=== PATIENT | male | born 1985 | race Caucasian/White ===

== ENCOUNTER → 2024-08-29 | Outpatient (CLI) | payer MEDICARE, OTHER ==
--- NOTE | 2024-08-29 13:55 | P.PAINPG ---
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 Pt states pain level is provoked at 6 /10 in intensity, constant, localized in the lumbar spine, predominantly axial, throbbing in character w occasional shooting pain towards the LEs. Pain is provoked by weight bearing. Pain is alleviated by PT x 6 wks in 2022, physician guided home stretches daily since 2005, medications, use of a wheelchair for ambulatory assistance, repositioning and rest . Oswestry axial pain score at 30. PMH: OA, Spinal Bifida, CVA, GERD, BPH, Vitamin D Deficiency, MDD PSH: Spinal Fusion, Shunt Placement/ Revision x2, Nephrolithiasis, Colostomy, Urostomy, Vascular Grafts SH: Daily tobacco use, No ETOH abuse, No illicit drug use FH: Mo- Lung CA All: See list Meds: See list incl Dilaudid 2mg #90 REVIEW OF ORGAN SYSTEMS: CONSTITUTIONAL: No fevers or chills. No recent weight loss. NEUROLOGICAL: + numbness and tingling along the distal extremities. No seizure disorders or headaches. MUSCULOSKELETAL: + pain PSYCHIATRIC: Denies current depression or suicidal thoughts. Physical Examinations : Constitutional : Cooperative , not in acute distress . Neurologic : Cranial nerve II to XII intact. No focal neurological deficits. Psychiatric : alert & oriented x 3. Matching mood & appropriate affect. Judgment & insight intact. Musculoskeletal : Cervical Spine Motor strength in the deltoid and biceps: Normal right side. Normal Left side Motor strength biceps and the wrist extensors: Normal right side . Normal left side Motor strength in the triceps muscle: Normal right side. Normal left side Deep tendon reflexes: Normal at the biceps. Normal at Brachioradialis. Normal at triceps Vertebral body tenderness to deep palpation over Cervical facet loading test: positive bilaterally Spurling test: positive bilaterally Neck distraction test: positive bilaterally Genet sign: positive bilaterally Lumbar spine +Incisional scars Motor strength lower extremities ,thigh and legs 5/5 Right side , 5/5 Left side Deep tendon reflexes : Normal Knee Jerk. Normal Ankle Jerk Vertebral body tenderness over Velasquez Test positive Lumbar facet Loading Test: positive Right / positive Left Range of motion of the lumbar spine Flexion 30 degrees, extension 10 degrees Straight Leg Raise test: Left/ Right positive at degrees Fernando test: positive right / positive left. Severe tenderness over the Sacroiliac joint on the Right / Left sides Gaenslen test: positive bilaterally Seated flexion test: positive bilaterally. Sacral spine : Severe tenderness over the Sacroiliac joint: right side / left side Range of motion: Flexion of the lumbar spine <60 degrees Range of motion: Extension of the lumbar spine <20 degrees Gaenslen's Test positive Fernando test: positive right side / left side Thigh Thrust Test Sacral Thrust Test Assessment/ Plan : Spinal Fusion secondary to Spinal Bifida Recommendation of medication management. Opiate/ narcotic agreement signed 08/29/24. Dilaudid 2mg #90 w 1 RF. Use, side effects, adverse reactions, safe storage discussed. All questions answered. I have spent greater than 30 minutes on patient care today. Dr Smith was available by phone for the evaluation of this patient. The time was used to review the medical records including relevant urine studies and Prescription history (MAPs), review of the available imaging, evaluation and examination of the patient, coordination of care with the medical staff and if applicable referring physicians, as well as creation of the medical record Home Medications: Ambulatory Orders Apixaban [Eliquis] 5 mg PO BID 07/17/24 Cholecalciferol [Vitamin D3 (10 Mcg = 400 Iu)] 2 tab PO DAILY 07/17/24 DULoxetine HCL [Cymbalta] 1 tab PO DAILY 07/17/24 Folic Acid 800 mcg PO DAILY 07/17/24 HYDROmorphone [Dilaudid] 1 tab PO TID PRN 07/17/24 Loratadine 10 mg PO DAILY 07/17/24 Metoclopramide HCl [Reglan] 1 tab PO BID 07/17/24 Pantoprazole Sodium 1 tab PO DAILY 07/17/24 Tamsulosin [Flomax] 1 tab PO DAILY 07/17/24 Triamcinolone 0.025% Cream [Kenalog 0.025% Cream] 1 dispenser TOPICAL BID 07/17/24 buPROPion XL [Wellbutrin XL] 1 tab PO DAILY 07/17/24 traZODone HCL [Desyrel] 1 tab PO DAILY 07/17/24 Controlled Substance Measures - Controlled Substance Measures Is patient prescribed a controlled substance at discharge?: Yes When asked, does pt state using other controlled substances?: No If prescribed controlled substance>3 days was MAPS reviewed?: Yes If Rx opioid, was Start Talking consent form obtained?: Yes Was information provided regarding opioid addiction?: Yes
[2024-08-29 14:03] VITALS: BP 117/75; PULSE 88; RESP 16; TEMP 98.5
== END ==
LOC: PNWHC3 12:53
PROVIDERS: ATTEND Specialist
DX: M43.26 Fusion of spine, lumbar region (principal); Q05.9 Spina bifida, unspecified; Z88.0 Allergy status to penicillin; Z88.2 Allergy status to sulfonamides; Z88.1 Allergy status to other antibiotic agents; Z88.5 Allergy status to narcotic agent; Z91.040 Latex allergy status; Z91.041 Radiographic dye allergy status
CPT/HCPCS: 99211

== ENCOUNTER 2024-09-02 23:59 | Observation (INO) | payer MEDICARE, OTHER ==
--- NOTE | 2024-09-03 01:32 | ED ---
General Adult HPI - General Chief complaint: Urogenital Stated complaint: abd pain Time Seen by Provider: 09/03/24 00:07 Source: patient, EMS Mode of arrival: EMS - History of Present Illness Initial comments: This patient is a 39-year-old man with history of spina bifida, urostomy placement, and kidney stones. The patient states that going back for a number of weeks to months he has been having intermittent right flank pain and he does have a known kidney stone. Patient states that a couple of hours ago the pain came on and has been increasing, now severe. He states it is identical to previous stone pain. The patient may have noted low grade temp, no chills. No change in the urostomy output. The patient does have some associated nausea. Patient does report having chronic ulcers, 1 over each buttock and sacral ulcer as well. States that he is currently using wound honey on these, history of chronic osteomyelitis Onset/Timin -: hour(s) Location: back, abdomen, right Radiation: non-radiation Quality: aching, sharp Consistency: colicky Improves with: none Worsens with: none Associated Symptoms: nausea/vomiting Treatments Prior to Arrival: none - Related Data Home Medications Medication Instructions Recorded Confirmed Apixaban [Eliquis] 5 mg PO BID 07/17/24 08/29/24 Cholecalciferol [Vitamin D3 (10 2 tab PO DAILY 07/17/24 08/29/24 Mcg = 400 Iu)] DULoxetine HCL [Cymbalta] 1 tab PO DAILY 07/17/24 08/29/24 Folic Acid 800 mcg PO DAILY 07/17/24 08/29/24 Loratadine 10 mg PO DAILY 07/17/24 08/29/24 Metoclopramide HCl [Reglan] 1 tab PO BID 07/17/24 08/29/24 Pantoprazole Sodium 1 tab PO DAILY 07/17/24 08/29/24 Tamsulosin [Flomax] 1 tab PO DAILY 07/17/24 08/29/24 Triamcinolone 0.025% Cream 1 dispenser TOPICAL BID 07/17/24 08/29/24 [Kenalog 0.025% Cream] buPROPion XL [Wellbutrin XL] 1 tab PO DAILY 07/17/24 08/29/24 traZODone HCL [Desyrel] 1 tab PO DAILY 07/17/24 08/29/24 Previous Rx's Medication Instructions Recorded HYDROmorphone [Dilaudid] 1 tab PO TID PRN 30 Days #90 tab 08/29/24 Allergies Allergy/AdvReac Type Severity Reaction Status Date / Time amoxicillin Allergy Rash/Hives Verified 08/29/24 13:41 barium sulfate Allergy Dyspnea Verified 08/29/24 13:41 cefepime Allergy Rash/Hives Verified 08/29/24 13:41 ceftriaxone Allergy Rash/Hives Verified 08/29/24 13:41 fentanyl Allergy Rash/Hives Verified 08/29/24 13:41 Iodinated Contrast Media Allergy Dyspnea Verified 08/29/24 13:41 latex Allergy Rash/Hives Verified 08/29/24 13:41 morphine Allergy Anaphylaxis Verified 08/29/24 13:41 ondansetron [From Zofran] Allergy Rash/Hives Verified 08/29/24 13:41 prochlorperazine Allergy Rash/Hives Verified 08/29/24 13:41 [From Compazine] Review of Systems ROS Statement: Those systems with pertinent positive or pertinent negative responses have been documented in the HPI. ROS Other: All systems not noted in ROS Statement are negative. Constitutional: Denies: fever, chills, weakness Respiratory: Denies: cough, dyspnea Cardiovascular: Denies: chest pain, palpitations Gastrointestinal: Reports: as per HPI, abdominal pain. Denies: nausea, vomiting, diarrhea Genitourinary: Denies: hematuria, testicular pain, testicular mass Musculoskeletal: Reports: as per HPI, back pain Skin: Denies: rash Neurological: Denies: headache, weakness Past Medical History Past Medical History: Heart Failure, Deep Vein Thrombosis (DVT), GERD/Reflux, Hypertension, Musculoskeletal Disorder, Neurologic Disorder, Renal Disease, Skin Disorder Additional Past Medical History / Comment(s): WOUND STAGE 4 CAITLYN AND MID BUT TOCKS-[facility] wound clinic Q other week, kidney stone, scoliosis/kyphosis, spina bifida-T6 level, cervical stenosis History of Any Multi-Drug Resistant Organisms: C-DIFF, ESBL, MRSA Date of last positivie culture/infection: 2020 MDRO Source:: WOUND Past Surgical History: Appendectomy, Back Surgery, Bladder Surgery, Bowel Resection, Cholecystectomy, Orthopedic Surgery, Plyoromyotomy, Ventriculoperitoneal Shunt Additional Past Surgical History / Comment(s): Urostomy,Colostomy, [facility] shunt placed 2019, Lt rotator cuff repair, Infusaport LT chest, Spinal fusion at 7 years old Past Anesthesia/Blood Transfusion Reactions: No Reported Reaction Past Psychological History: Depression Smoking Status: Never smoker - Past Family History Mother Additional Family Medical History / Comment(s): spine issues General Exam General appearance: alert, in no apparent distress Head exam: Present: atraumatic, normocephalic Eye exam: Present: normal appearance. Absent: scleral icterus, conjunctival injection ENT exam: Present: normal oropharynx Neck exam: Present: normal inspection Respiratory exam: Present: normal lung sounds bilaterally. Absent: respiratory distress, wheezes, rales, rhonchi, stridor, accessory muscle use Cardiovascular Exam: Present: regular rate, normal rhythm, normal heart sounds. Absent: systolic murmur, diastolic murmur, rubs, gallop GI/Abdominal exam: Present: soft. Absent: distended, tenderness, guarding, isabel ound, mass Neurological exam: Present: alert Skin exam: Present: warm, dry, intact, normal color. Absent: rash Course Vital Signs 09/03/24 09/03/24 09/03/24 00:03 02:09 06:17 Temperature 99.9 F H 98.7 F Pulse Rate 100 95 94 Respiratory 20 18 17 Rate Blood Pressure 107/70 121/73 110/77 O2 Sat by Pulse 97 97 97 Oximetry Medical Decision Making - Medical Decision Making Patient is 39-year-old man with right-sided flank and abdominal pain, also some low-grade fevers. The workup does find mild leukocytosis and CT scan reveals osteomyelitis of the left ischium. Patient states that this is probably all chronic, but given the low-grade fever and leukocytosis will admit patient pending set of cultures and to have ID consult. - Lab Data Result diagrams: 09/03/24 01:22 09/03/24 01:22 Lab Results 09/03/24 09/03/24 09/03/24 Range/Units 01:22 01:22 01:22 WBC 11.9 H (3.8-10.6) k/uL RBC 4.69 (4.30-5.90) m/uL Hgb 11.7 L (13.0-17.5) gm/dL Hct 38.0 L (39.0-53.0) % MCV 80.9 (80.0-100.0) fL MCH 24.9 L (25.0-35.0) pg MCHC 30.8 L (31.0-37.0) g/dL RDW 15.8 H (11.5-15.5) % Plt Count 402 (150-450) k/uL MPV 7.1 Neutrophils % 81 % Lymphocytes % 12 % Monocytes % 5 % Eosinophils % 1 % Basophils % 0 % Neutrophils # 9.7 H (1.3-7.7) k/uL Lymphocytes # 1.4 (1.0-4.8) k/uL Monocytes # 0.6 (0-1.0) k/uL Eosinophils # 0.2 (0-0.7) k/uL Basophils # 0.0 (0-0.2) k/uL Hypochromasia Moderate Sodium 136 L (137-145) mmol/L Potassium 3.5 (3.5-5.1) mmol/L Chloride 103 (98-107) mmol/L Carbon Dioxide 22 (22-30) mmol/L Anion Gap 11 mmol/L BUN 14 (9-20) mg/dL Creatinine 0.63 L (0.66-1.25) mg/dL Est GFR (CKD-EPI)AfAm >90 (>60 ml/min/1.73 sqM) Est GFR (CKD-EPI)NonAf >90 (>60 ml/min/1.73 sqM) Glucose 114 H (74-99) mg/dL Plasma Lactic Acid Reuben 1.9 (0.7-2.0) mmol/L Calcium 7.5 L (8.4-10.2) mg/dL Total Bilirubin 0.3 (0.2-1.3) mg/dL AST 17 (17-59) U/L ALT 13 (4-49) U/L Alkaline Phosphatase 134 H (38-126) U/L Total Protein 6.6 (6.3-8.2) g/dL Albumin 3.1 L (3.5-5.0) g/dL Urine Color Urine Appearance (Clear) Urine pH (5.0-8.0) Ur Specific Goltry (1.001-1.035) Urine Protein (Negative) Urine Glucose (UA) (Negative) Urine Ketones (Negative) Urine Blood (Negative) Urine Nitrite (Negative) Urine Bilirubin (Negative) Urine Urobilinogen (<2.0) mg/dL Ur Leukocyte Esterase (Negative) Urine RBC (0-5) /hpf Urine WBC (0-5) /hpf Urine WBC Clumps (None) /hpf Urine Bacteria (None) /hpf Hyaline Casts (0-2) /lpf Urine Mucus (None) /hpf 09/03/ Range/Units 01:24 WBC (3.8-10.6) k/uL RBC (4.30-5.90) m/uL Hgb (13.0-17.5) gm/dL Hct (39.0-53.0) % MCV (80.0-100.0) fL MCH (25.0-35.0) pg MCHC (31.0-37.0) g/dL RDW (11.5-15.5) % Plt Count (150-450) k/uL MPV Neutrophils % % Lymphocytes % % Monocytes % % Eosinophils % % Basophils % % Neutrophils # (1.3-7.7) k/uL Lymphocytes # (1.0-4.8) k/uL Monocytes # (0-1.0) k/uL Eosinophils # (0-0.7) k/uL Basophils # (0-0.2) k/uL Hypochromasia Sodium (137-145) mmol/L Potassium (3.5-5.1) mmol/L Chloride (98-107) mmol/L Carbon Dioxide (22-30) mmol/L Anion Gap mmol/L BUN (9-20) mg/dL Creatinine (0.66-1.25) mg/dL Est GFR (CKD-EPI)AfAm (>60 ml/min/1.73 sqM) Est GFR (CKD-EPI)NonAf (>60 ml/min/1.73 sqM) Glucose (74-99) mg/dL Plasma Lactic Acid Reuben (0.7-2.0) mmol/L Calcium (8.4-10.2) mg/dL Total Bilirubin (0.2-1.3) mg/dL AST (17-59) U/L ALT (4-49) U/L Alkaline Phosphatase (38-126) U/L Total Protein (6.3-8.2) g/dL Albumin (3.5-5.0) g/dL Urine Color Light Yellow Urine Appearance Cloudy (Clear) Urine pH 7.0 (5.0-8.0) Ur Specific Goltry 1.014 (1.001-1.035) Urine Protein 1+ H (Negative) Urine Glucose (UA) Negative (Negative) Urine Ketones Negative (Negative) Urine Blood Small H (Negative) Urine Nitrite Positive (Negative) Urine Bilirubin Negative (Negative) Urine Urobilinogen <2.0 (<2.0) mg/dL Ur Leukocyte Esterase Large H (Negative) Urine RBC 29 H (0-5) /hpf Urine WBC >182 H (0-5) /hpf Urine WBC Clumps Many H (None) /hpf Urine Bacteria Many H (None) /hpf Hyaline Casts 27 H (0-2) /lpf Urine Mucus Many H (None) /hpf Disposition Clinical Impression: Decubitus ulcers, Leukocytosis, Flank pain Disposition: ADMITTED IP TO THIS [facility] Condition: Fair Is patient prescribed a controlled substance at d/c from ED?: No Referrals: Akash Hodges MD [Primary Care Provider] - 1-2 days
[2024-09-03] MEDS: HYDROmorphone 1 MG/ML 1 ML SYRINGE IVP STA ×2 (01:37→05:46)
[2024-09-03] MEDS: ONDANSETRON 4 MG/2 ML VIAL IVP STA (01:40)
[2024-09-03] MEDS: diphenhydrAMINE 50 MG/ML 1 ML VIAL IVP STA ×4 (01:41→12:24)
[2024-09-03 02:06] LABS: Basophils % (A) 0 %; Eosinophils # (A) 0.2 k/uL (0-0.7); Eosinophils % (A) 1 %; HGB 11.7 gm/dL (13.0-17.5); Hypochromasia Moderate; Lymphocytes # (A) 1.4 k/uL (1.0-4.8); Lymphocytes % (A) 12 %; MCH 24.9 pg (25.0-35.0); MCHC 30.8 g/dL (31.0-37.0); MCV 80.9 fL (80.0-100.0); Mean Platelet Volume 7.1; Monocytes # (A) 0.6 k/uL (0-1.0); Monocytes % (A) 5 %; Neutrophils # (A) 9.7 k/uL (1.3-7.7); Neutrophils % (A) 81 %; Platelet Count 402 k/uL (150-450); RBC 4.69 m/uL (4.30-5.90); RDW 15.8 % (11.5-15.5); WBC 11.9 k/uL (3.8-10.6)
[2024-09-03 02:24] LABS: ALT 13 U/L (4-49); AST 17 U/L (17-59); African American GFR (CKD) >90 (>60 ml/min/1.73 sqM); Albumin 3.1 g/dL (3.5-5.0); Alkaline Phosphatase 134 U/L (38-126); Anion Gap 11 mmol/L; Blood Urea Nitrogen 14 mg/dL (9-20); Calcium 7.5 mg/dL (8.4-10.2); Carbon Dioxide 22 mmol/L (22-30); Chloride 103 mmol/L (98-107); Glucose 114 mg/dL (74-99); Non-African American GFR(CKD) >90 (>60 ml/min/1.73 sqM); Potassium 3.5 mmol/L (3.5-5.1); Sodium 136 mmol/L (137-145); Total Bilirubin 0.3 mg/dL (0.2-1.3); Total Protein 6.6 g/dL (6.3-8.2)
[2024-09-03 02:27] LABS: Appearance,Urine Cloudy (Clear); Bacteria,Urine Many /hpf; Bilirubin,Urine Negative (Negative); Blood,Urine Small (Negative); Color,Urine Light Yellow; Glucose,Urine (UA) Negative (Negative); Hyaline Casts,Urine 27 /lpf (0-2); Ketones,Urine Negative (Negative); Leukocyte Esterase,Urine Large (Negative); Mucus,Urine Many /hpf; Nitrite,Urine Positive (Negative); Protein,Urine 1+ (Negative); RBC,Urine 29 /hpf (0-5); Specific Gravity,Urine 1.014 (1.001-1.035); Urobilinogen,Urine <2.0 mg/dL (<2.0); WBC,Urine >182 /hpf (0-5)
--- NOTE | 2024-09-03 05:49 | CT ---
EXAM: CT Abdomen and Pelvis Without Intravenous Contrast CLINICAL HISTORY: ITS.REASON CT Reason: stone protocol. R flank pain TECHNIQUE: Axial computed tomography images of the abdomen and pelvis without intravenous contrast. CTDI is 23.2 mGy and DLP is 1135.2 mGy-cm. This CT exam was performed using one or more of the following dose reduction techniques: automated exposure control, adjustment of the mA and/or kV according to patient size, and/or use of iterative reconstruction technique. COMPARISON: No relevant prior studies available. FINDINGS: Limitations: Limited evaluation in the absence of contrast. Lung bases: Unremarkable. No mass. No consolidation. ABDOMEN: Liver: Unremarkable. Gallbladder and bile ducts: Unremarkable. No calcified stones. No ductal dilation. Pancreas: Unremarkable. No ductal dilation. Spleen: Unremarkable. No splenomegaly. Adrenals: Unremarkable. No mass. Kidneys and ureters: No evidence of radiopaque renal calculi or signs of collecting system dilatation. Irregular fat-containing mass which appears to arise from the left kidney measuring up to 7.3 cm. Findings may relate to posttreatment changes. Angiomyolipoma is also possible. Consider correlation with prior imaging. ACR White Paper guidelines (Herts, et al. JACR 2018; 15(2):264-273) [address] abdominal CT or MRI without and with intravenous contrast if not recently performed. Stomach and bowel: Unremarkable. No obstruction. No mucosal thickening. PELVIS: Appendix: No findings to suggest acute appendicitis. Bladder: Unremarkable. No stones. Reproductive: Unremarkable as visualized. ABDOMEN and PELVIS: Intraperitoneal space: Unremarkable. No free air. No significant fluid collection. Bones/joints: Partially visualized thoracic-iliac spinal fusion hardware. Bilateral destruction of the femoral acetabular joints, left greater than right. Findings concerning for advanced osteomyelitis of the left if she with overlying ulcer. Consider direct inspection. Destruction of the posterior sacrum and coccyx. No acute fracture. No dislocation. Soft tissues: Unremarkable. Vasculature: Unremarkable. No abdominal aortic aneurysm. Lymph nodes: Unremarkable. No enlarged lymph nodes. IMPRESSION: 1. No evidence of radiopaque renal calculi or signs of collecting system dilatation. 2. Irregular fat-containing mass which appears to arise from the left kidney measuring up to 7.3 cm. Findings may relate to posttreatment changes. Angiomyolipoma is also possible. Consider correlation with prior imaging. ACR White Paper guidelines (Herts, et al. JACR 2018; 15(2):264-273) recommend abdominal CT or MRI without and with intravenous contrast if not recently performed. 3. Findings concerning for advanced osteomyelitis of the left if she with overlying ulcer. Consider direct inspection. 4. Destruction of the posterior sacrum and coccyx. 5. No other acute findings. 6. Incidental findings as described.
[2024-09-03] MEDS ORDERED: NALOXONE 0.4 MG/ML 1 ML VIAL IV PRN (06:45)
[2024-09-03] MEDS ORDERED: ACETAMINOPHEN TAB 325 MG TAB PO PRN (06:45)
--- NOTE | 2024-09-03 08:53 | P.HPIM ---
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 Denies fevers or chills. Denies chest pain, palpitations or shortness of breath. Denies lightheadedness dizziness or focal deficits. Tmax 99.9, WBC 11.9, hemoglobin 11.7, platelets 402 and sodium 136, potassium 3.5, bicarb 22, BUN 14, creatinine 0.63 glucose 114 lactic acid 1.9, Alk phos 134, albumin 3.1. UA positive for nitrates, 1+ protein, large leukocytes, greater than 182 WBCs with many bacteria, 27 hyaline cast, small blood with 29 RBCs. Urine and blood cultures pending. CT of abdomen and pelvis reported no evidence of radiopaque renal calculi or signs of collecting system dilation. Irregular fat-containing mass appears to arise from the left kidney measuring up to 7.3 cm. May relate to posttreatment changes. Angio mild lipoma is also possible. Consider correlation with prior imaging. findings concerning for advanced osteomyelitis of the left foot with overlying ulcer. Destruction of posterior sacrum and coccyx no other acute findings Review of Systems ROS Statement: Those systems with pertinent positive or pertinent negative responses have been documented in the HPI. ROS Other: All systems not noted in ROS Statement are negative. Past Medical History Past Medical History: Heart Failure, Deep Vein Thrombosis (DVT), GERD/Reflux, Hy pertension, Musculoskeletal Disorder, Neurologic Disorder, Renal Disease, Skin Disorder Additional Past Medical History / Comment(s): WOUND STAGE 4 [place] [facility] wound clinic Q other week, kidney stone, scoliosis/kyphosis, spina bifida-T6 level, cervical stenosis History of Any Multi-Drug Resistant Organisms: C-DIFF, ESBL, MRSA Date of last positivie culture/infection: 2020 MDRO Source:: WOUND Past Surgical History: Appendectomy, Back Surgery, Bladder Surgery, Bowel Resection, Cholecystectomy, Orthopedic Surgery, Plyoromyotomy, Ventriculoperitoneal Shunt Additional Past Surgical History / Comment(s): Urostomy,Colostomy, [facility] shunt pl aced 2018, Lt rotator cuff repair, Infusaport LT chest, Spinal fusion at 7 years old Past Anesthesia/Blood Transfusion Reactions: No Reported Reaction Past Psychological History: Depression Smoking Status: Never smoker - Past Family History Mother Additional Family Medical History / Comment(s): spine issues Medications and Allergies Home Medications Medication Instructions Recorded Confirmed Type Apixaban [Eliquis] 5 mg PO BID 07/17/24 09/03/24 History Metoclopramide HCl [Reglan] 10 mg PO AC-BID 07/17/24 09/03/24 History Pantoprazole Sodium 40 mg PO AC-BRKFST 07/17/24 09/03/24 History Tamsulosin [Flomax] 0.4 mg PO DAILY 07/17/24 09/03/24 History buPROPion XL [Wellbutrin XL] 150 mg PO DAILY 07/17/24 09/03/24 History traZODone HCL [Desyrel] 50 mg PO HS PRN 07/17/24 09/03/24 History HYDROmorphone HCL 2 mg PO TID PRN 09/03/24 09/03/24 History Levofloxacin [Levaquin] 500 mg PO DAILY 7 Days #7 tab 09/03/24 Rx Metoprolol Succinate (ER) [Toprol 25 mg PO HS 09/03/24 09/03/24 History XL] Allergies Allergy/AdvReac Type Severity Reaction Status Date / Time amoxicillin Allergy Rash/Hives Verified 09/03/24 07:27 barium sulfate Allergy Dyspnea Verified 09/03/24 07:27 cefepime Allergy Rash/Hives Verified 09/03/24 07:27 ceftriaxone Allergy Rash/Hives Verified 09/03/24 07:27 fentanyl Allergy Rash/Hives Verified 09/03/24 07:27 Iodinated Contrast Media Allergy Dyspnea Verified 09/03/24 07:27 latex Allergy Rash/Hives Verified 09/03/24 07:27 morphine Allergy Anaphylaxis Verified 09/03/24 07:27 ondansetron [From Zofran] Allergy Rash/Hives Verified 09/03/24 07:27 prochlorperazine Allergy Rash/Hives Verified 09/03/24 07:27 [From Compazine] Physical Exam Vitals: Vital Signs Temp Pulse Resp BP Pulse Ox 09/03/24 06:17 94 17 110/77 97 09/03/24 02:09 98.7 F 95 18 121/73 97 09/03/24 00:03 99.9 F H 100 20 107/70 97 Intake and Output 09/02/24 09/03/24 09/03/24 22:59 06:59 14:59 Other: Weight 81.647 kg PHYSICAL EXAM: VITAL SIGNS: [Reviewed] GENERAL:-year-old gentleman with spina bifida ,alert and oriented x 3, sitting up in bed, no acute distress. HEENT: Conjunctivae normal. eyes normal. MMM. NECK: Supple, no JVD. No thyroid enlargement. No LNs CARDIOVASCULAR: S1, S2 regular.. No murmur RESPIRATION: Kyphosis .unlabored, equal air entry .breath sounds diminished in the bases. No rhonchi or crackles. No bronchial breathing. ABDOMEN: Soft, nontender . No guarding. no masses palpable. No ascites, No hepatosplenomegaly.Bowel sounds heard. LEGS: No edema. no swelling PSYCHIATRY: Alert and oriented X3, mood and affect normal. NERVOUS SYSTEM: Cranial N 2-12 grossly normal.No focal deficits. Skin: Chronic stage IV left ischium , stage IV sacrum, pressure ulcer right ischium, left and right lower extremities' chronic nonpressure ulcers, refer to nursing documentation for specific sizing. Results CBC & Chem 7: 09/03/24 01:22 09/03/24 01:22 Labs: Abnormal Lab Results - Last 24 Hours (Table) 09/03/24 09/03/24 09/03/24 Range/Units 01:22 01:22 01:24 WBC 11.9 H (3.8-10.6) k/uL Hgb 11.7 L (13.0-17.5) gm/dL Hct 38.0 L (39.0-53.0) % MCH 24.9 L (25.0-35.0) pg MCHC 30.8 L (31.0-37.0) g/dL RDW 15.8 H (11.5-15.5) % Neutrophils # 9.7 H (1.3-7.7) k/uL Sodium 136 L (137-145) mmol/L Creatinine 0.63 L (0.66-1.25) mg/dL Glucose 114 H (74-99) mg/dL Calcium 7.5 L (8.4-10.2) mg/dL Alkaline Phosphatase 134 H (38-126) U/L Albumin 3.1 L (3.5-5.0) g/dL Urine Protein 1+ H (Negative) Urine Blood Small H (Negative) Ur Leukocyte Esterase Large H (Negative) Urine RBC 29 H (0-5) /hpf Urine WBC >182 H (0-5) /hpf Urine WBC Clumps Many H (None) /hpf Urine Bacteria Many H (None) /hpf Hyaline Casts 27 H (0-2) /lpf Urine Mucus Many H (None) /hpf Assessment and Plan Assessment: Acute UTI, UA reporting positive nitrates, large leukocytes, rare than 182 WBCs, many bacteria, accompanied by right flank pain, urine culture pending Chronic osteomyelitis with chronic pressure ulcers;Stage IV left ischium , stage IV sacrum, pressure ulcer right ischium, left and right lower extremities' chronic nonpressure ulcers, follows with [facility] wound care clinic every other week. Leukocytosis, mild Irregular fat-containing mass arising from the left kidney measuring up to 7.3 cm, possibly related to posttreatment, possible angiomyolipoma, patient has already been scheduled for outpatient follow-up with urology per wound care team. 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 difficile, ESBL, MRSA Hypertension chronic renal failure stage 1 history of DVT Morbid obesity, BMI 33 Urostomy Colostomy Depression Hypoalbuminemia Pain contract Plan: Continue on current medication regimen ,monitoring and symptomatic treatment. Urine culture pending. Multiple drug allergies, history of multiple drug-resistant organism infections ; notified ID with antibiotics pending as per ID. Prealbumin, hemoglobin A1c ordered. Anticoagulated on Eliquis. Continue on PPI for GI prophylax. Wound care as per [facility] wound care team.Wound care center reports patient has already been set up to follow-up with urology outpatient. Pain management-patient reports he follows up with the pain management team at [facility], uses oral Dilaudid. Evaluated by infectious disease. Patient to receive a dose of Levaquin IV then cleared for discharg home on Levaquin 500 milligrams daily x 7 days. Pain controlled on Dilaudid-has oral Dilaudid at home per pain management team. patient will be discharged home today in a stable condition with guarded prognosis. Discharge Medication List Apixaban [Eliquis] 5 mg PO BID 07/17/24 [History] Metoclopramide HCl [Reglan] 10 mg PO AC-BID 07/17/24 [History] Pantoprazole Sodium 40 mg PO AC-BRKFST 07/17/24 [History] Tamsulosin [Flomax] 0.4 mg PO DAILY 07/17/24 [History] buPROPion XL [Wellbutrin XL] 150 mg PO DAILY 07/17/24 [History] traZODone HCL [Desyrel] 50 mg PO HS PRN 07/17/24 [History] HYDROmorphone HCL 2 mg PO TID PRN 09/03/24 [History] Levofloxacin [Levaquin] 500 mg PO DAILY 7 Days #7 tab 09/03/24 [Rx] Metoprolol Succinate (ER) [Toprol XL] 25 mg PO HS 09/03/24 [History] The impression and plan of care has been dictated as directed. : I performed a history and examination of this patient, discussed the same with the dictator. I agree with the dictator's note ,documented as a scribe. Any ad ditional findings or plans will be noted.
[2024-09-03] MEDS ORDERED: LORATADINE 10 MG TAB PO SCH (09:00)
[2024-09-03] MEDS ORDERED: CHOLECALCIFEROL 10 MCG (400 IU) TABLET PO SCH (09:00)
[2024-09-03] MEDS ORDERED: FOLIC ACID 1 MG TAB PO SCH (09:00)
[2024-09-03] MEDS ORDERED: DULoxetine HCL 60 MG CAPSULE.DR PO SCH (09:00)
[2024-09-03] MEDS: METOCLOPRAMIDE 10 MG TAB PO SCH (09:01)
[2024-09-03] MEDS: PANTOPRAZOLE 40 MG TABLET PO SCH (09:02)
[2024-09-03] MEDS: APIXABAN 5 MG TAB PO SCH (09:02)
[2024-09-03] MEDS: buPROPion XL 150 MG TAB.ER.24H PO SCH (09:02)
[2024-09-03] MEDS: traZODone HCL 50 MG TAB PO SCH (09:02)
[2024-09-03] MEDS: TAMSULOSIN 0.4 MG CAP.ER.24H PO SCH (09:02)
[2024-09-03] MEDS: SODIUM CHLORIDE 0.9% 1,000 ML IV SCH (09:07)
[2024-09-03] MEDS: HYDROmorphone 0.5 MG/0.5 ML SYRINGE IVP STA (10:24)
[2024-09-03] MEDS ORDERED: HYDROmorphone 0.5 MG/0.5 ML SYRINGE IVP PRN (10:25)
[2024-09-03 10:39] LABS: Cocaine Screen,Urine Not Detected (NotDetected); Opiate Screen,Urine Detected (NotDetected); Phencyclidine Screen,Urine Not Detected (NotDetected); Urn Cannabinoid Scrn Not Detected (NotDetected)
[2024-09-03 10:40] LABS: Amphetamine Screen,Urine Not Detected (NotDetected); Barbiturate Screen,Urine Not Detected (NotDetected); Benzodiazepines Screen,Urine Not Detected (NotDetected); Methadone Screen, Urine Not Detected (NotDetected); Oxycodone Screen, Urine Not Detected (NotDetected); Tricyclic Antidepressant,Urine Not Detected (NotDetected)
--- NOTE | 2024-09-03 11:00 | P.CONS ---
History of Present Illness - Reason for Consult Consult date: 09/03/24 wound care - History of Present Illness This is a 39-year-old gentleman known to the wound care center with history of chronic osteomyelitis chronic stage IV pressure ulcer and spina bifida. [place] We have been utilizing honey gel to the ulcerations. Last week at his wound care visit it was found that his penis is visible through his midline sacral ulceration. Patient was set up to see urology. Original cause of wound was Gradually Appeared. The date acquired was: 06/12/2023. The wound has been in treatment 4 weeks. The wound is currently classified as a Partial Thickness wound with etiology of Venous Leg Ulcer and is located on the Left,Circumferential Lower Leg. The wound measures 0cm length x 0cm width x 0cm depth; 0cm^2 area and 0cm^3 volume. There is no tunneling or undermining noted. There is a none present amount of drainage noted. The wound margin is indistinct and nonvisible. There is no granulation within the wound bed. There is no necrotic tissue within the wound bed. The periwound skin appearance exhibited: Dry/Scaly, Maceration, Hemosiderin Staining. The periwound skin appearance did not exhibit: Callus, Crepitus, Excoriation, Induration, Rash, Scarring, Atrophie Jordan, Cyanosis, Ecchymosis, Mottled, Pallor, Rubor, Erythema. Periwound temperature was noted as No Abnormality. Original cause of wound was Gradually Appeared. The date acquired was: 06/12/2023. The wound has been in treatment 4 weeks. The wound is currently classified as a Partial Thickness wound with etiology of Venous Leg Ulcer and is located on the Right,Circumferential Lower Leg. The wound measures 13.7cm length x 6.5cm width x 0.1cm depth; 69.94cm^2 area and 6.994cm^3 volume. There is no tunneling or undermining noted. There is a medium amount of serous drainage noted. The wound margin is indistinct and nonvisible. There is medium (34-66%) pink granulation within the wound bed. There is a medium (34-66%) amount of necrotic tissue within the wound bed including Adherent Slough. The periwound skin appearance exhibited: Dry/Scaly, Maceration, Hemosiderin Staining. The periwound skin appearance did not exhibit: Callus, Crepitus, Excoriation, Induration, Rash, Scarring, Atrophie Geovanna, Cyanosis, Ecchymosis, Mottled, Pallor, Rubor, Erythema. Original cause of wound was Pressure Injury. The date acquired was: 06/12/2023. The wound has been in treatment 4 weeks. The wound is currently classified as a Category/Stage IV wound with etiology of Pressure Ulcer and is located on the Left Ischium. The wound measures 3cm length x 1.7cm width x 3cm depth; 4.006cm^2 area and 12.017cm^3 volume. There is muscle, Fat Layer (Subcutaneous Tissue), and fascia exposed. There is no tunneling or undermining noted. There is a large amount of serosanguineous drainage noted. The wound cliff in is fibrotic, thickened scar. There is medium (34-66%) red granulation within the wound bed. There is a medium (34-66%) amount of necrotic tissue within the wound bed including Adherent Slough. The periwound skin appearance exhibited: Excoriation, Maceration, Erythema. The periwound skin appearance did not exhibit: Callus, Crepitus, Induration, Rash, Scarring, Dry/Scaly, Atrophie Jordan, Cyanosis, Ecchymosis, Hemosiderin Staining, Mottled, Pallor, Rubor. The surrounding wound skin color is noted with erythema which is circumferential. Periwound temperature was noted as No Abnormality. Original cause of wound was Pressure Injury. The date acquired was: 06/12/2023. The wound has been in treat ment 4 weeks. The wound is currently classified as a Category/Stage IV wound with etiology of Pressure Ulcer and is located on the Right Ischium. The wound measures 1.4cm length x 3.5cm width x 2cm depth; 3.848cm^2 area and 7.697cm^3 volume. There is muscle, Fat Layer (Subcutaneous Tissue), and fascia exposed. There is no tunneling or undermining noted. There is a large amount of serosanguineous drainage noted. The wound margin is fibrotic, thickened scar. There is large (67-100%) red granulation within the wound bed. There is a small (1-33%) amount of necrotic tissue within the wound bed including Adherent Slough. The periwound skin appearance exhibited: Excoriation, Erythema. The periwound skin appearance did not exhibit: Callus, Crepitus, Induration, Rash, Scarring, Dry/Scaly, Maceration, Atrophie Geovanna, Cyanosis, Ecchymosis, Hemosiderin Staining, Mottled, Pallor, Rubor. The surrounding wound skin color is noted with erythema which is circumferential. Periwound temperature was noted as No Abnormality. Review Of Systems: Constitutional: No fever, no chills, no night sweats. No weight change. No weakness, fatigue or lethargy. No daytime sleepiness. Integumentary:reports wounds, no lesions. No rash or pruritus. No unusual bruising. No change in hair or nails. Physical exam: General Appearance: Alert, cooperative, no distress, appears stated age. Skin: See HPI all other Skin color, texture, tugor normal, no rashes or lesions. Neurologic: Alert oriented x3 Assessment: 1.Pressure ulcer right ischium 2. Stage IV pressure ulcer left ischium 3. Stage IV pressure ulcer sacrum 4. nonpressure chronic ulcer of other part of left lower extremity limited to skin breakdown 5. Nonpressure chronic ulcer of other part of right lower leg limited to skin breakdown 6. Chronic osteomyelitis 7. Spina bifida Plan: 1. Left lower extremity: Apply honey gel to ulcer, zinc to periwound, dry gauze, rolled gauze and secure with tape. Wrap with elgin wrap. Right lower extremity: Apply bag balm and elgin wrap. Right/Left Ischium: Apply honey gel to ulcer, zince barrier cream to periwound and absorptive silver to midline of ulceration over exposed penis. Cover with abd and avoid tape. Patient to return to the wound care center on September 10 at 1:30. Thank for the consultation any questions please contact the wound care center DNP note has been reviewed and discussed with Dr. Sevilla and the impression and plan of care has been directed as dictated. Past Medical History Past Medical History: Heart Failure, Deep Vein Thrombosis (DVT), GERD/Reflux, Hypertension, Musculoskeletal Disorder, Neurologic Disorder, Renal Disease, Skin Disorder Additional Past Medical History / Comment(s): WOUND STAGE 4 [place] wound clinic Q other week, kidney stone, scoliosis/kyphosis, spina bifida-T6 level, cervical stenosis History of Any Multi-Drug Resistant Organisms: C-DIFF, ESBL, MRSA Year Discovered:: 2020 MDRO Source:: WOUND Past Surgical History: Appendectomy, Back Surgery, Bladder Surgery, Bowel Resection, Cholecystectomy, Orthopedic Surgery, Plyoromyotomy, Ventriculoperitoneal Shunt Additional Past Surgical History / Comment(s): Urostomy,Colostomy, VA shunt placed 2018, Lt rotator cuff repair, Infusaport LT chest, Spinal fusion at 7 years old Past Anesthesia/Blood Transfusion Reactions: No Reported Reaction Past Psychological History: Depression Smoking Status: Never smoker - Past Family History Mother Additional Family Medical History / Comment(s): spine issues Medications and Allergies Home Medications Medication Instructions Recorded Confirmed Type Apixaban [Eliquis] 5 mg PO BID 07/17/24 09/03/24 History Metoclopramide HCl [Reglan] 10 mg PO AC-BID 07/17/24 09/03/24 History Pantoprazole Sodium 40 mg PO AC-BRKFST 07/17/24 09/03/24 History Tamsulosin [Flomax] 0.4 mg PO DAILY 07/17/24 09/03/24 History buPROPion XL [Wellbutrin XL] 150 mg PO DAILY 07/17/24 09/03/24 History traZODone HCL [Desyrel] 50 mg PO HS PRN 07/17/24 09/03/24 History Metoprolol Succinate (ER) [Toprol 25 mg PO HS 09/03/24 09/03/24 History Xl] Allergies Allergy/AdvReac Type Severity Reaction Status Date / Time amoxicillin Allergy Rash/Hives Verified 09/03/24 07:27 barium sulfate Allergy Dyspnea Verified 09/03/24 07:27 cefepime Allergy Rash/Hives Verified 09/03/24 07:27 ceftriaxone Allergy Rash/Hives Verified 09/03/24 07:27 fentanyl Allergy Rash/Hives Verified 09/03/24 07:27 Iodinated Contrast Media Allergy Dyspnea Verified 09/03/24 07:27 latex Allergy Rash/Hives Verified 09/03/24 07:27 morphine Allergy Anaphylaxis Verified 09/03/24 07:27 ondansetron [From Zofran] Allergy Rash/Hives Verified 09/03/24 07:27 prochlorperazine Allergy Rash/Hives Verified 09/03/24 07:27 [From Compazine] Physical Exam Vitals: Vital Signs Temp Pulse Resp BP Pulse Ox 09/03/24 10:21 20 124/89 09/03/24 08:54 98.5 F 91 18 93/72 98 09/03/24 06:17 94 17 110/77 97 09/03/24 02:09 98.7 F 95 18 121/73 97 09/03/24 00:03 99.9 F H 100 20 107/70 97 Intake and Output 09/02/24 09/03/24 09/03/24 22:59 06:59 14:59 Other: Weight 81.647 kg Results CBC & Chem 7: 09/03/24 01:22 09/03/24 01:22 Labs: Abnormal Lab Results - Last 24 Hours (Table) 09/03/24 09/03/24 09/03/24 Range/Units 01:22 01:22 01:24 WBC 11.9 H (3.8-10.6) k/uL Hgb 11.7 L (13.0-17.5) gm/dL Hct 38.0 L (39.0-53.0) % MCH 24.9 L (25.0-35.0) pg MCHC 30.8 L (31.0-37.0) g/dL RDW 15.8 H (11.5-15.5) % Neutrophils # 9.7 H (1.3-7.7) k/uL Sodium 136 L (137-145) mmol/L Creatinine 0.63 L (0.66-1.25) mg/dL Glucose 114 H (74-99) mg/dL Calcium 7.5 L (8.4-10.2) mg/dL Alkaline Phosphatase 134 H (38-126) U/L Albumin 3.1 L (3.5-5.0) g/dL Urine Protein 1+ H (Negative) Urine Blood Small H (Negative) Ur Leukocyte Esterase Large H (Negative) Urine RBC 29 H (0-5) /hpf Urine WBC >182 H (0-5) /hpf Urine WBC Clumps Many H (None) /hpf Urine Bacteria Many H (None) /hpf Hyaline Casts 27 H (0-2) /lpf Urine Mucus Many H (None) /hpf Urine Opiates Screen (NotDetected) 09/03/24 Range/Units 01:24 WBC (3.8-10.6) k/uL Hgb (13.0-17.5) gm/dL Hct (39.0-53.0) % MCH (25.0-35.0) pg MCHC (31.0-37.0) g/dL RDW (11.5-15.5) % Neutrophils # (1.3-7.7) k/uL Sodium (137-145) mmol/L Creatinine (0.66-1.25) mg/dL Glucose (74-99) mg/dL Calcium (8.4-10.2) mg/dL Alkaline Phosphatase (38-126) U/L Albumin (3.5-5.0) g/dL Urine Protein (Negative) Urine Blood (Negative) Ur Leukocyte Esterase (Negative) Urine RBC (0-5) /hpf Urine WBC (0-5) /hpf Urine WBC Clumps (None) /hpf Urine Bacteria (None) /hpf Hyaline Casts (0-2) /lpf Urine Mucus (None) /hpf Urine Opiates Screen Detected H (NotDetected) Assessment and Plan (1) Pressure ulcer of right hip, stage 4 Current Visit: Yes Status: Acute Code(s): L89.214 - PRESSURE ULCER OF RIGHT HIP, STAGE 4 SNOMED Code(s): 52171223925347 (2) Pressure ulcer of left hip, stage 4 Current Visit: Yes Status: Acute Code(s): L89.224 - PRESSURE ULCER OF LEFT HIP, STAGE 4 SNOMED Code(s): 72783708401924 (3) Pressure ulcer of sacral region, stage 3 Current Visit: Yes Status: Acute Code(s): L89.153 - PRESSURE ULCER OF SACRAL REGION, STAGE 3 SNOMED Code(s): 74218897931296 (4) Non-pressure chronic ulcer of other part of left lower leg limited to breakdown of skin Current Visit: Yes Status: Acute Code(s): L97.821 - NON-PRS CHR ULCER OTH PRT L LOW LEG LIMITED TO BRKDWN SKIN SNOMED Code(s): 79890893059291949 (5) Non-pressure chronic ulcer of other part of right lower leg limited to breakdown of skin Current Visit: Yes Status: Acute Code(s): L97.811 - NON-PRS CHR ULCER OTH PRT R LOW LEG LIMITED TO BRKDWN SKIN SNOMED Code(s): 32159527924225741 (6) Osteomyelitis, unspecified Current Visit: Yes Status: Acute Code(s): M86.9 - OSTEOMYELITIS, UNSPECIFIED SNOMED Code(s): 88662778 (7) Spina bifida, unspecified Current Visit: Yes Status: Acute Code(s): Q05.9 - SPINA BIFIDA, UNSPECIFIED SNOMED Code(s): 62460434
[2024-09-03 12:06] VITALS: TEMP 98
[2024-09-03] MEDS: LEVOFLOXACIN 500MG-D5W PMX 500 MG in DEXTROSE/WATER 1 100ML.BAG IVPB STA (15:28)
[2024-09-03] MEDS ORDERED: HYDROmorphone 2 MG TAB PO PRN (15:36)
[2024-09-03 18:01] VITALS: BP 116/77; PULSE 86; RESP 18
[2024-09-03] MEDS ORDERED: METOPROLOL SUCCINATE (ER) 25 MG TAB.ER.24H PO SCH (21:00)
--- NOTE | 2024-09-03 23:27 | P.CONS ---
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 patient has previously been in [place] moved to [place] in May and has been following in the wound care center for his local wound care patient presented to [facility] ER concerning for intermittent right flank pain and concern for possible kidney stone as it has been common for him patient describing the pain to be coming more frequently and severe intensity patient did have some nausea but no vomiting on presentation to the hospital patient did have low-grade fever of 99.9 degrees following right patient was tachycardic borderline hypotensive but no need for pressor support and not hypoxic, patient did have white count of 11.9 creatinine 0.63 electrolytes has been normal liver enzymes are normal urine has been positive infectious disease was consulted for decubitus ulcer without active osteo and need for antibiotic therapy, Patient did have abdominal pelvis CT with no evidence for radiopaque renal calculi or signs of collecting system dilatation, and also osteomyelitis of the left and insertion of the posterior sacrum and coccyx, Review of Systems Positive point and negatives has been mentioned in the HPI, complete review of systems was performed and all other systems are negative Past Medical History Past Medical History: Heart Failure, Deep Vein Thrombosis (DVT), GERD/Reflux, Hypertension, Musculoskeletal Disorder, Neurologic Disorder, Renal Disease, Skin Disorder Additional Past Medical History / Comment(s): WOUND STAGE 4 [facility] wound clinic Q other week, kidney stone, scoliosis/kyphosis, spina bifida-T6 level, cervical stenosis History of Any Multi-Drug Resistant Organisms: C-DIFF, ESBL, MRSA Year Discovered:: 2020 MDRO Source:: WOUND Past Surgical History: Appendectomy, Back Surgery, Bladder Surgery, Bowel Resection, Cholecystectomy, Orthopedic Surgery, Plyoromyotomy, Ventriculoperitoneal Shunt Additional Past Surgical History / Comment(s): Urostomy,Colostomy, VA shunt placed 2018, Lt rotator cuff repair, Infusaport LT chest, Spinal fusion at 7 years old Past Anesthesia/Blood Transfusion Reactions: No Reported Reaction Past Psychological History: Depression Smoking Status: Never smoker - Past Family History Mother Additional Family Medical History / Comment(s): spine issues Medications and Allergies Home Medications Medication Instructions Recorded Confirmed Type Apixaban [Eliquis] 5 mg PO BID 07/17/24 09/03/24 History Metoclopramide HCl [Reglan] 10 mg PO AC-BID 07/17/24 09/03/24 History Pantoprazole Sodium 40 mg PO AC-BRKFST 07/17/24 09/03/24 History Tamsulosin [Flomax] 0.4 mg PO DAILY 07/17/24 09/03/24 History buPROPion XL [Wellbutrin XL] 150 mg PO DAILY 07/17/24 09/03/24 History traZODone HCL [Desyrel] 50 mg PO HS PRN 07/17/24 09/03/24 History HYDROmorphone HCL 2 mg PO TID PRN 09/03/24 09/03/24 History Levofloxacin [Levaquin] 500 mg PO DAILY 7 Days #7 tab 09/03/24 Rx Metoprolol Succinate (ER) [Toprol 25 mg PO HS 09/03/24 09/03/24 History XL] Allergies Allergy/AdvReac Type Severity Reaction Status Date / Time amoxicillin Allergy Rash/Hives Verified 09/03/24 07:27 barium sulfate Allergy Dyspnea Verified 09/03/24 07:27 cefepime Allergy Rash/Hives Verified 09/03/24 07:27 ceftriaxone Allergy Rash/Hives Verified 09/03/24 07:27 fentanyl Allergy Rash/Hives Verified 09/03/24 07:27 Iodinated Contrast Media Allergy Dyspnea Verified 09/03/24 07:27 latex Allergy Rash/Hives Verified 09/03/24 07:27 morphine Allergy Anaphylaxis Verified 09/03/24 07:27 ondansetron [From Zofran] Allergy Rash/Hives Verified 09/03/24 07:27 prochlorperazine Allergy Rash/Hives Verified 09/03/24 07:27 [From Compazine] Physical Exam Vitals: Vital Signs Temp Pulse Resp BP Pulse Ox 09/03/24 10:21 20 124/89 09/03/24 08:54 98.5 F 91 18 93/72 98 09/03/24 06:17 94 17 110/77 97 09/03/24 02:09 98.7 F 95 18 121/73 97 09/03/24 00:03 99.9 F H 100 20 107/70 97 Intake and Output 09/02/24 09/03/24 09/03/24 22:59 06:59 14:59 Other: Weight 81.647 kg GENERAL DESCRIPTION: Middle-age male lying in bed, no distress. No tachypnea or accessory muscle of respiration use. HEENT: Shows Pallor , no scleral icterus. Oral mucous membrane is dry. NECK: Trachea central, no thyromegaly. LUNGS: Unlabored breathing. Clear to auscultation anteriorly. No wheeze or crackle. HEART: S1, S2, regular rate and rhythm. No loud murmur ABDOMEN: Soft, no tenderness , guarding or rigidity, no organomegaly EXTREMITIES: No edema of feet. SKIN: Patient did have a stage IV sacral pressure ulcer however wound base with no significant slough tissue surrounding redness or any foul-smelling drainage NEUROLOGICAL: The patient is awake, alert, oriented x3, mood and affect normal. Results CBC & Chem 7: 09/03/24 01:22 09/03/24 01:22 Labs: Abnormal Lab Results - Last 24 Hours (Table) 09/03/24 09/03/24 09/03/24 Range/Units 01:22 01:22 01:24 WBC 11.9 H (3.8-10.6) k/uL Hgb 11.7 L (13.0-17.5) gm/dL Hct 38.0 L (39.0-53.0) % MCH 24.9 L (25.0-35.0) pg MCHC 30.8 L (31.0-37.0) g/dL RDW 15.8 H (11.5-15.5) % Neutrophils # 9.7 H (1.3-7.7) k/uL Sodium 136 L (137-145) mmol/L Creatinine 0.63 L (0.66-1.25) mg/dL Glucose 114 H (74-99) mg/dL Calcium 7.5 L (8.4-10.2) mg/dL Alkaline Phosphatase 134 H (38-126) U/L Albumin 3.1 L (3.5-5.0) g/dL Urine Protein 1+ H (Negative) Urine Blood Small H (Negative) Ur Leukocyte Esterase Large H (Negative) Urine RBC 29 H (0-5) /hpf Urine WBC >182 H (0-5) /hpf Urine WBC Clumps Many H (None) /hpf Urine Bacteria Many H (None) /hpf Hyaline Casts 27 H (0-2) /lpf Urine Mucus Many H (None) /hpf Urine Opiates Screen (NotDetected) 09/03/24 Range/Units 01:24 WBC (3.8-10.6) k/uL Hgb (13.0-17.5) gm/dL Hct (39.0-53.0) % MCH (25.0-35.0) pg MCHC (31.0-37.0) g/dL RDW (11.5-15.5) % Neutrophils # (1.3-7.7) k/uL Sodium (137-145) mmol/L Creatinine (0.66-1.25) mg/dL Glucose (74-99) mg/dL Calcium (8.4-10.2) mg/dL Alkaline Phosphatase (38-126) U/L Albumin (3.5-5.0) g/dL Urine Protein (Negative) Urine Blood (Negative) Ur Leukocyte Esterase (Negative) Urine RBC (0-5) /hpf Urine WBC (0-5) /hpf Urine WBC Clumps (None) /hpf Urine Bacteria (None) /hpf Hyaline Casts (0-2) /lpf Urine Mucus (None) /hpf Urine Opiates Screen Detected H (NotDetected) Assessment and Plan (1) UTI (urinary tract infection) Status: Acute Code(s): N39.0 - URINARY TRACT INFECTION, SITE NOT SPECIFIED SNOMED Code(s): 49868912 (2) Allergy to multiple antibiotics Status: Acute Code(s): Z88.1 - ALLERGY STATUS TO OTHER ANTIBIOTIC AGENTS SNOMED Code(s): 239092464 (3) Decubitus ulcers Status: Acute Code(s): L89.90 - PRESSURE ULCER OF UNSPECIFIED SITE, UNSPECIFIED STAGE SNOMED Code(s): 8794930109 (4) Leukocytosis Status: Acute Code(s): D72.829 - ELEVATED WHITE BLOOD CELL COUNT, UNSPECIFIED SNOMED Code(s): 522987000 Plan: 1patient presented to hospital with right flank pain and there was concern for possible kidney stone CT abdominal pelvis did not show any stone or dilatation of his collecting system in this patient who did have a urostomy with a positive UA from the same of questionable significance however keeping in mind mildly elevated white count possible component of UTI not entirely solid. 2patient also have a stage IV sacral pressure ulcer for 20 years with no evidence of any recent worsening as reported by the patient and on clinical examination there was no slough tissue surrounding redness of foul-smelling drainage finding on the CT could be chronic osteo rather than acute and will be treated conservatively as the patient to follow at [facility] care center care was discussed with his admitting physician who is also wound care physician if any worsening of the wound is noticed or any drainage I can be involved in his care at that point 3-patient with multiple antibiotic ALLERGIES that would limit the number of antibiotic safe to use 4-will consider Levaquin for possible UTI at this point discussed with admitting team We will follow on clinical condition and cultures to further adjust medication if needed Thank you for this consultation we will follow the patient along with you Dictation was produced using [employer] dictation software. please excuse any grammatical, word or spelling errors. Time with Patient: Greater than 30
== END 2024-09-03 18:15 | disposition home or self-care (01) ==
LOC: EC 23:59 → 4SSUR 09-03 06:50
PROVIDERS: ADMIT Family Medicine; ATTEND Family Medicine
DX: N39.0 Urinary tract infection, site not specified (principal); L89.214 Pressure ulcer of right hip, stage 4; L89.224 Pressure ulcer of left hip, stage 4; L89.154 Pressure ulcer of sacral region, stage 4; L97.811 Non-pressure chronic ulcer of other part of right lower leg limited to breakdown of skin; L97.821 Non-pressure chronic ulcer of other part of left lower leg limited to breakdown of skin; N20.0 Calculus of kidney; N28.9 Disorder of kidney and ureter, unspecified; M41.9 Scoliosis, unspecified; M86.60 Other chronic osteomyelitis, unspecified site; N18.1 Chronic kidney disease, stage 1; Q05.6 Thoracic spina bifida without hydrocephalus; K21.9 Gastro-esophageal reflux disease without esophagitis; E66.01 Morbid (severe) obesity due to excess calories; E88.09 Other disorders of plasma-protein metabolism, not elsewhere classified; F32.A Depression, unspecified; I13.0 Hypertensive heart and chronic kidney disease with heart failure and stage 1 through stage 4 chronic kidney disease, or unspecified chronic kidney disease; I50.9 Heart failure, unspecified; Z79.01 Long term (current) use of anticoagulants; Z79.899 Other long term (current) drug therapy; Z86.718 Personal history of other venous thrombosis and embolism; Z87.442 Personal history of urinary calculi; Z88.1 Allergy status to other antibiotic agents; Z98.2 Presence of cerebrospinal fluid drainage device; Z88.0 Allergy status to penicillin; Z88.8 Allergy status to other drugs, medicaments and biological substances; Z88.5 Allergy status to narcotic agent; Z91.040 Latex allergy status; Z91.041 Radiographic dye allergy status; Z68.33 Body mass index [BMI] 33.0-33.9, adult; Z93.3 Colostomy status; Z98.1 Arthrodesis status; Z86.14 Personal history of Methicillin resistant Staphylococcus aureus infection; Z16.24 Resistance to multiple antibiotics
CPT/HCPCS: 96376; 96365; 96375; 99285; 36415; 84134; 80053; 83605; 85025; 81001; 87040; 80306; 87070; 87086; 87205; 87077; 87186; 83036; 74176; G0378; J1200; J2405; J1956; J1171 ×2

== ENCOUNTER 2024-09-30 18:05 | Emergency (ER) | payer MEDICARE, OTHER ==
[2024-09-30 18:37] VITALS: TEMP 99
--- NOTE | 2024-09-30 19:07 | ED ---
Male Urogenital HPI - General Chief complaint: Urogenital Stated complaint: N/V Time Seen by Provider: 09/30/24 18:47 Source: patient, RN notes reviewed, old records reviewed Mode of arrival: ambulatory Limitations: no limitations - History of Present Illness Initial comments: This is a 39-year-old male to the ER for evaluation patient is concern for 1 month of UTI untreated. Patient states his symptoms are persistent numbness tingling burning in his bladder area, patient is spina bifida patient unable to ambulate suprapubic catheter history of osteomyelitis MD Complaint: other (Tingling symptoms strange neurologic symptoms feels like UTI) -: month(s) Radiation: none Severity: mild Severity scale (1-10): 2 Consistency: intermittent Improves with: none Worsens with: none Reports: denies other symptoms - Related Data Home Medications Medication Instructions Recorded Confirmed Apixaban [Eliquis] 5 mg PO BID 07/17/24 09/30/24 Metoclopramide HCl [Reglan] 10 mg PO AC-BID 07/17/24 09/30/24 Pantoprazole Sodium 40 mg PO AC-BRKFST 07/17/24 09/30/24 Tamsulosin [Flomax] 0.4 mg PO DAILY 07/17/24 09/30/24 buPROPion XL [Wellbutrin XL] 150 mg PO HS 07/17/24 09/30/24 traZODone HCL [Desyrel] 50 mg PO HS PRN 07/17/24 09/30/24 HYDROmorphone HCL 2 mg PO TID PRN 09/03/24 09/30/24 Metoprolol Succinate (ER) [Toprol 25 mg PO DAILY 09/03/24 09/30/24 XL] Folic Acid 0.8 mg PO DAILY 09/30/24 09/30/24 Loratadine [Claritin] 10 mg PO DAILY 09/30/24 09/30/24 Triamcinolone 0.025% Cream 1 applic TOPICAL DIRECTED 09/30/24 09/30/24 [Kenalog 0.025% Cream] Previous Rx's Medication Instructions Recorded Amoxic-Pot Clav 875-125Mg 1 tab PO Q12HR #20 tablet 09/30/24 [Augmentin 875-125] Allergies Allergy/AdvReac Type Severity Reaction Status Date / Time amoxicillin Allergy Rash/Hives Verified 09/30/24 20:52 barium sulfate Allergy Dyspnea Verified 09/30/24 20:52 cefepime Allergy Rash/Hives Verified 09/30/24 20:52 ceftriaxone Allergy Rash/Hives Verified 09/30/24 20:52 fentanyl Allergy Rash/Hives Verified 09/30/24 20:52 Iodinated Contrast Media Allergy Dyspnea Verified 09/30/24 20:52 latex Allergy Rash/Hives Verified 09/30/24 20:52 morphine Allergy Anaphylaxis Verified 09/30/24 20:52 ondansetron [From Zofran] Allergy Rash/Hives Verified 09/30/24 20:52 prochlorperazine Allergy Rash/Hives Verified 09/30/24 20:52 [From Compazine] Review of Systems ROS Statement: Those systems with pertinent positive or pertinent negative responses have been documented in the HPI. ROS Other: All systems not noted in ROS Statement are negative. Past Medical History Past Medical History: Heart Failure, Deep Vein Thrombosis (DVT), GERD/Reflux, Hypertension, Musculoskeletal Disorder, Neurologic Disorder, Renal Disease, Skin Disorder Additional Past Medical History / Comment(s): WOUND STAGE 4 [facility] wound clinic Q other week, kidney stone, scoliosis/kyphosis, spina bifida-T6 level, cervical stenosis History of Any Multi-Drug Resistant Organisms: C-DIFF, ESBL, MRSA Date of last positivie culture/infection: 2022 MDRO Source:: WOUND Past Surgical History: Appendectomy, Back Surgery, Bladder Surgery, Bowel Resection, Cholecystectomy, Orthopedic Surgery, Plyoromyotomy, Ventriculoperitoneal Shunt Additional Past Surgical History / Comment(s): Urostomy,Colostomy, [facility] shunt placed 2018, Lt rotator cuff repair, [facility] LT chest, Spinal fusion at 7 years old Past Anesthesia/Blood Transfusion Reactions: No Reported Reaction Past Psychological History: Depression Smoking Status: Never smoker Past Alcohol Use History: None Reported Past Drug Use History: None Reported - Past Family History Mother Additional Family Medical History / Comment(s): spine issues General Exam Limitations: no limitations General appearance: alert, in no apparent distress Head exam: Present: atraumatic, normocephalic, normal inspection Eye exam: Present: normal appearance, PERRL, EOMI. Absent: scleral icterus, conjunctival injection, periorbital swelling ENT exam: Present: normal exam, mucous membranes moist Neck exam: Present: normal inspection. Absent: tenderness, meningismus, lymphadenopathy Respiratory exam: Present: normal lung sounds bilaterally. Absent: respiratory distress, wheezes, rales, rhonchi, stridor Cardiovascular Exam: Present: regular rate, normal rhythm, normal heart sounds. Absent: systolic murmur, diastolic murmur, rubs, gallop, clicks GI/Abdominal exam: Present: soft, normal bowel sounds. Absent: distended, tenderness, guarding, rebound, rigid Extremities exam: Present: normal inspection, full ROM, normal capillary refill. Absent: tenderness, pedal edema, joint swelling, calf tenderness Back exam: Present: normal inspection Neurological exam: Present: alert, oriented X3, CN II-XII intact Psychiatric exam: Present: normal affect, normal mood Skin exam: Present: warm, dry, intact, normal color. Absent: rash Course Vital Signs 09/30/24 18:34 Temperature 99.0 F Pulse Rate 86 Respiratory 17 Rate Blood Pressure 131/77 O2 Sat by Pulse 98 Oximetry - Reevaluation(s) Reevaluation #1: 09/30/24 20:26 Medical records reviewed Reevaluation #2: 09/30/24 20:26 Patient symptoms improved Reevaluation #3: 09/30/24 20:27 Patient informed of results and questions answered Reevaluation #4: Was pt. sent in by a medical professional or institution (, PA, PERFORATOR LOADER, urgent care, hospital, or [facility]...) When possible be specific @ -no Did you speak to anyone other than the patient for history (EMS, parent, family, police, friend...)? What history was obtained from this source @ -no Did you review nursing and triage notes (agree or disagree)? Why? @ -agree Are old charts reviewed (outside hosp., previous admission, EMS record, old EKG, old radiological studies, urgent care reports/EKG's, [facility] records)? Report findings @ -yes Differential Diagnosis (chest pain, altered mental status, abdominal pain women, abdominal pain men, vaginal bleeding, weakness, fever, dyspnea, syncope, headache, dizziness, GI bleed, back pain, seizure, CVA, palpatations, mental health, musculoskeletal)? @ -prior EKG interpreted by me (3pts min.). @ -yes X-rays interpreted by me (1pt min.). @ -yes negative for acute disease CT interpreted by me (1pt min.). @ -no U/S interpreted by me (1pt. min.). @ -no What testing was considered but not performed or refused? (CT, X-rays, U/S, labs)? Why? @ -none What meds were considered but not given or refused? Why? @ -none Did you discuss the management of the patient with other professionals (professionals i.e. , PA, PERFORATOR LOADER, lab, RT, psych nurse, social work faculty member, html developer, teacher, regulatory compliance officer, manager case)? Give summary @ -no Was smoking cessation discussed for >3mins.? @ -no Was critical care preformed (if so, how long)? @ -no Were there social determinants of health that impacted care today? How? (Homelessness, low income, unemployed, alcoholism, drug addiction, transportation, low edu. Level, literacy, decrease access to med. care, correction, rehab)? @ -none Was there de-escalation of care discussed even if they declined (Discuss DNR or withdrawal of care, Hospice)? DNR status @ -no What co-morbidities impacted this encounter? (DM, HTN, Smoking, COPD, CAD, Cancer, CVA, ARF, Chemo, Hep., AIDS, mental health diagnosis, sleep apnea, morbid obesity)? @ -none Was patient admitted / discharged? Hospital course, mention meds given and route, prescriptions, significant lab abnormalities, going to OR and other pertinent info. @ - Undiagnosed new problem with uncertain prognosis? @ -no Drug Therapy requiring intensive monitoring for toxicity (Heparin, Nitro, Insulin, Cardizem)? @ -no Were any procedures done? @ -no Diagnosis/symptom? @ - Acute, or Chronic, or Acute on Chronic? @ -Acute Uncomplicated (without systemic symptoms) or Complicated (systemic symptoms)? @ -Complicated Side effects of treatment? @ -no Exacerbation, Progression, or Severe Exacerbation? @ -exacerbation Poses a threat to life or bodily function? How? (Chest pain, [place], NH, pneumonia, PE, COPD, DKA, ARF, appy, cholecystitis, CVA, Diverticulitis, Homicidal, Suicidal, threat to staff... and all critical care pts) @ -yes - Consultations Consultation #1: Spoke with Dr. Hodges he would prefer discharge on oral antibiotics Medical Decision Making - Medical Decision Making 39 male to ER for evaluation of persistent UTI will place on new antibiotic, and patient can be discharged home - Lab Data Result diagrams: 09/30/24 20:18 09/30/24 20:18 Lab Results 09/30/24 09/30/24 09/30/24 Range/Units 20:18 20:18 20:18 WBC 10.81 H (4.50-10.00) 10*3/uL RBC 5.00 (4.40-5.60) 10*6/uL Hgb 12.8 L (13.0-17.0) g/dL Hct 40.6 (39.6-50.0) % MCV 81.2 (80.0-97.0) fL MCH 25.6 L (27.0-32.0) pg MCHC 31.5 L (32.0-37.0) g/dL Plt Count 280 (140-440) 10*3/uL MPV 9.5 (9.5-12.2) fL Immature Gran % (Auto) 0.2 % Neutrophils % 79.1 % Lymphocytes % 12.7 % Monocytes % 6.8 % Eosinophils % 0.6 % Basophils % 0.6 % Immature Gran # 0.02 (0.00-0.04) 10*3/uL Neutrophils # 8.55 H (1.80-7.70) 10*3/uL Lymphocytes # 1.37 (0.90-5.00) 10*3/uL Monocytes # 0.73 (0.20-1.00) 10*3/uL Eosinophils # 0.07 (0.04-0.35) 10*3/uL Basophils # 0.07 (0.00-0.10) 10*3/uL Sodium 135 L (137-145) mmol/L Potassium 4.1 (3.5-5.1) mmol/L Chloride 101 (98-107) mmol/L Carbon Dioxide 25 (22-30) mmol/L Anion Gap 9 mmol/L BUN 14 (9-20) mg/dL Creatinine 0.56 L (0.66-1.25) mg/dL Est GFR (CKD-EPI)AfAm >90 (>60 ml/min/1.73 sqM) Est GFR (CKD-EPI)NonAf >90 (>60 ml/min/1.73 sqM) Glucose 85 (74-99) mg/dL Plasma Lactic Acid Reuben 0.9 (0.7-2.0) mmol/L Calcium 8.7 (8.4-10.2) mg/dL Total Bilirubin 0.5 (0.2-1.3) mg/dL AST 21 (17-59) U/L ALT 15 (4-49) U/L Alkaline Phosphatase 127 H (38-126) U/L Total Protein 7.0 (6.3-8.2) g/dL Albumin 3.5 (3.5-5.0) g/dL Amylase 60 (30-110) U/L Lipase 147 (23-300) U/L Disposition Clinical Impression: UTI (urinary tract infection) Disposition: HOME SELF-CARE Condition: Good Instructions (If sedation given, give patient instructions): Urinary Tract Infection in Men (ED) Prescriptions: Amoxic-Pot Clav 875-125Mg [Augmentin 875-125] 1 tab PO Q12HR #20 tablet Is patient prescribed a controlled substance at d/c from ED?: No Referrals: Akash Hodges MD [Primary Care Provider] - 1-2 days Time of Disposition: 22:00
[2024-09-30 20:22] LABS: Basophils # (A) 0.07 10*3/uL (0.00-0.10); Basophils % (A) 0.6 %; Eosinophils # (A) 0.07 10*3/uL (0.04-0.35); Eosinophils % (A) 0.6 %; HCT 40.6 % (39.6-50.0); HGB 12.8 g/dL (13.0-17.0); Lymphocytes # (A) 1.37 10*3/uL (0.90-5.00); Lymphocytes % (A) 12.7 %; MCH 25.6 pg (27.0-32.0); MCHC 31.5 g/dL (32.0-37.0); MCV 81.2 fL (80.0-97.0); Mean Platelet Volume 9.5 fL (9.5-12.2); Monocytes # (A) 0.73 10*3/uL (0.20-1.00); Monocytes % (A) 6.8 %; Neutrophils # (A) 8.55 10*3/uL (1.80-7.70); Neutrophils % (A) 79.1 %; Platelet Count 280 10*3/uL (140-440); RDW 15.8 % (11.5-14.5); WBC 10.81 10*3/uL (4.50-10.00)
[2024-09-30] MEDS: PIPERACILLIN-TAZOBACTAM 3.375 GM in SODIUM CHLORIDE 0.9% 100 ML IVPB STA (20:32)
[2024-09-30] MEDS: SODIUM CHLORIDE 0.9% 1,000 ML IV SCH (20:32)
[2024-09-30 20:39] LABS: ALT 15 U/L (4-49); AST 21 U/L (17-59); African American GFR (CKD) >90 (>60 ml/min/1.73 sqM); Albumin 3.5 g/dL (3.5-5.0); Alkaline Phosphatase 127 U/L (38-126); Amylase 60 U/L (30-110); Anion Gap 9 mmol/L; Blood Urea Nitrogen 14 mg/dL (9-20); Calcium 8.7 mg/dL (8.4-10.2); Carbon Dioxide 25 mmol/L (22-30); Chloride 101 mmol/L (98-107); Glucose 85 mg/dL (74-99); Lipase 147 U/L (23-300); Non-African American GFR(CKD) >90 (>60 ml/min/1.73 sqM); Potassium 4.1 mmol/L (3.5-5.1); Sodium 135 mmol/L (137-145); Total Bilirubin 0.5 mg/dL (0.2-1.3)
[2024-09-30] MEDS: ONDANSETRON 4 MG/2 ML VIAL IVP STA (22:12)
[2024-09-30] MEDS: HYDROmorphone 1 MG/ML 1 ML SYRINGE IVP STA (22:15)
[2024-09-30] MEDS: diphenhydrAMINE 50 MG/ML 1 ML VIAL IVP STA (22:18)
[2024-09-30] MEDS: AMOXIC-POT CLAV 875-125MG 1 EACH TAB PO STA (22:20)
[2024-09-30 22:36] VITALS: BP 106/71; PULSE 100; RESP 18
== END 2024-09-30 22:25 | disposition home or self-care (01) ==
LOC: EC 18:05
DX: N39.0 Urinary tract infection, site not specified (principal); Z88.0 Allergy status to penicillin; Z88.1 Allergy status to other antibiotic agents; Z91.09 Other allergy status, other than to drugs and biological substances; Z91.040 Latex allergy status; Z88.8 Allergy status to other drugs, medicaments and biological substances; Z91.041 Radiographic dye allergy status
CPT/HCPCS: 36415; 80053; 82150; 83605; 83690; 85025; 87040; 99284; 96365; 96375 ×3; 96361 ×2; J2543; J1200; J2405; J1171

== ENCOUNTER 2024-10-20 15:32 | Inpatient (IN) | payer MEDICARE, OTHER ==
[2024-10-20 16:39] LABS: Appearance,Urine Turbid (Clear); Bacteria,Urine Moderate /hpf; Bilirubin,Urine Negative (Negative); Blood,Urine Large (Negative); Color,Urine Light Red; Glucose,Urine (UA) Negative (Negative); Ketones,Urine Negative (Negative); Leukocyte Esterase,Urine Large (Negative); Mucus,Urine Many /hpf; Nitrite,Urine Positive (Negative); Protein,Urine 2+ (Negative); RBC,Urine >182 /hpf (0-5); Specific Gravity,Urine 1.016 (1.001-1.035); Urobilinogen,Urine <2.0 mg/dL (<2.0); WBC,Urine 140 /hpf (0-5)
--- NOTE | 2024-10-20 16:39 | ED ---
General Adult HPI - General Chief complaint: Urogenital Stated complaint: right kidney pain blood in urine Time Seen by Provider: 10/20/24 15:39 Source: patient, RN notes reviewed Mode of arrival: wheelchair Limitations: no limitations - History of Present Illness Initial comments: 39-year-old male with a history of spina bifida presents to the emergency department for evaluation of right flank pain. Patient states that this started on Monday. He notes that yesterday he noticed some change in the color of his urine. This is worsened today. He notes some blood in the urine. He does have a urostomy in place. Patient reports having multiple urinary tract infections recently last being about 3 weeks ago. He was on Augmentin at that time. He denies any fever, chills. - Related Data Home Medications Medication Instructions Recorded Confirmed Apixaban [Eliquis] 5 mg PO BID 07/17/24 10/20/24 Metoclopramide HCl [Reglan] 10 mg PO AC-BID 07/17/24 10/20/24 Pantoprazole Sodium 40 mg PO AC-BRKFST 07/17/24 10/20/24 Tamsulosin [Flomax] 0.4 mg PO DAILY 07/17/24 10/20/24 buPROPion XL [Wellbutrin XL] 150 mg PO HS 07/17/24 10/20/24 traZODone HCL [Desyrel] 50 mg PO HS PRN 07/17/24 10/20/24 Metoprolol Succinate (ER) [Toprol 25 mg PO DAILY 09/03/24 10/20/24 XL] Folic Acid 0.8 mg PO DAILY 09/30/24 10/20/24 Loratadine [Claritin] 10 mg PO DAILY 09/30/24 10/20/24 Triamcinolone 0.025% Cream 1 applic TOPICAL BID 09/30/24 10/20/24 [Kenalog 0.025% Cream] Previous Rx's Medication Instructions Recorded HYDROmorphone HCL 2 mg PO TID PRN 30 Days #90 tab 10/23/24 Levofloxacin [Levaquin] 750 mg PO DAILY 28 Days #28 tab 10/25/24 Allergies Allergy/AdvReac Type Severity Reaction Status Date / Time amoxicillin Allergy Rash/Hives Verified 10/20/24 19:34 barium sulfate Allergy Dyspnea Verified 10/20/24 19:34 cefepime Allergy Rash/Hives Verified 10/20/24 19:34 ceftriaxone Allergy Rash/Hives Verified 10/20/24 19:34 fentanyl Allergy Rash/Hives Verified 10/20/24 19:34 Iodinated Contrast Media Allergy Dyspnea Verified 10/20/24 19:34 latex Allergy Rash/Hives Verified 10/20/24 19:34 morphine Allergy Anaphylaxis Verified 10/20/24 19:34 ondansetron [From Zofran] Allergy Rash/Hives Verified 10/20/24 19:34 prochlorperazine Allergy Rash/Hives Verified 10/20/24 19:34 [From Compazine] Review of Systems ROS Statement: Those systems with pertinent positive or pertinent negative responses have been documented in the HPI. ROS Other: All systems not noted in ROS Statement are negative. Past Medical History Past Medical History: Heart Failure, Deep Vein Thrombosis (DVT), GERD/Reflux, H ypertension, Musculoskeletal Disorder, Neurologic Disorder, Renal Disease, Skin Disorder Additional Past Medical History / Comment(s): WOUND STAGE 4 [facility] wound clinic Q other week, kidney stone, scoliosis/kyphosis, spina bifida-T6 level, cervical stenosis History of Any Multi-Drug Resistant Organisms: C-DIFF, ESBL, MRSA Date of last positivie culture/infection: 2022 MDRO Source:: WOUND Past Surgical History: Appendectomy, Back Surgery, Bladder Surgery, Bowel Resection, Cholecystectomy, Orthopedic Surgery, Plyoromyotomy, Ventriculoperitoneal Shunt Additional Past Surgical History / Comment(s): Urostomy,Colostomy, [facility] shunt p laced 2019, Lt rotator cuff repair, Infusaport LT chest, Spinal fusion at 7 years old Past Anesthesia/Blood Transfusion Reactions: No Reported Reaction Past Psychological History: Depression Smoking Status: Never smoker Past Alcohol Use History: None Reported Past Drug Use History: None Reported - Past Family History Mother Additional Family Medical History / Comment(s): spine issues General Exam Limitations: no limitations General appearance: alert, in no apparent distress Head exam: Present: atraumatic, normocephalic, normal inspection Eye exam: Present: normal appearance, PERRL, EOMI. Absent: scleral icterus, conjunctival injection, periorbital swelling ENT exam: Present: normal exam, mucous membranes moist Respiratory exam: Present: normal lung sounds bilaterally. Absent: respiratory distress, wheezes, rales, rhonchi, stridor Cardiovascular Exam: Present: regular rate, normal rhythm, normal heart sounds. Absent: systolic murmur, diastolic murmur, rubs, gallop, clicks Extremities exam: Present: normal inspection, full ROM, normal capillary refill. Absent: tenderness, pedal edema, joint swelling, calf tenderness Back exam: Present: CVA tenderness (R) Neurological exam: Present: alert, oriented X3 Psychiatric exam: Present: normal affect, normal mood Skin exam: Present: warm, dry, intact, normal color. Absent: rash Course Vital Signs 10/20/24 10/20/24 10/20/24 15:34 17:13 18:03 Temperature 98.6 F Pulse Rate 80 67 88 Respiratory 16 20 19 Rate Blood Pressure 132/83 121/62 107/85 O2 Sat by Pulse 99 99 100 Oximetry 10/20/24 10/20/24 19:26 21:03 Temperature Pulse Rate 74 71 Respiratory 19 18 Rate Blood Pressure 116/75 109/75 O2 Sat by Pulse 99 100 Oximetry Medical Decision Making - Medical Decision Making Was pt. sent in by a medical professional or institution (, PA, [employer]ER, urgent care, hospital, or group home...) When possible be specific @ -No Did you speak to anyone other than the patient for history (EMS, parent, family, police, friend...)? What history was obtained from this source @ -No Did you review nursing and triage notes (agree or disagree)? Why? @ -I reviewed and agree with nursing and triage notes Were old charts reviewed (outside hosp., previous admission, EMS record, old EKG, old radiological studies, urgent care reports/EKG's, group home records)? Report findings @ -No old charts were reviewed Differential Diagnosis (chest pain, altered mental status, abdominal pain women, abdominal pain men, vaginal bleeding, weakness, fever, dyspnea, syncope, headache, dizziness, GI bleed, back pain, seizure, CVA, palpatations, mental health, musculoskeletal)? @ -Differential Back Pain: Strain, zoster, cauda equina syndrome, epidural abscess, vertebral osteomyelitis, discitis, fracture, subluxation, disc herniation, DJD, spinal stenosis, dissection, AAA, pancreatitis, peptic ulcer disease, pyelonephritis, kidney stone, this is not meant to be an all-inclusive list. EKG interpreted by me (3pts min.). @ -None X-rays interpreted by me (1pt min.). @ -None done CT interpreted by me (1pt min.). @ -CT of the abdomen pelvis U/S interpreted by me (1pt. min.). @ -None done What testing was considered but not performed or refused? (CT, X-rays, U/S, labs)? Why? @ -None What meds were considered but not given or refused? Why? @ -None Did you discuss the management of the patient with other professionals (professionals i.e. DrSarah, PA, [employer] WINDER, lab, RT, psych nurse, school social worker, technical expert, teacher, aoc plans intelligence officer, corrections caseworker)? Give summary @ -Management discussed with Dr. Slaughter who was accepting of the admission Was smoking cessation discussed for >3mins.? @ -No Was critical care preformed (if so, how long)? @ -No Were there social determinants of health that impacted care today? How? (Homelessness, low income, unemployed, alcoholism, drug addiction, transportation, low edu. Level, literacy, decrease access to med. care, detention, rehab)? @ -No Was there de-escalation of care discussed even if they declined (Discuss DNR or withdrawal of care, Hospice)? DNR status @ -No What co-morbidities impacted this encounter? (DM, HTN, Smoking, COPD, CAD, Cancer, CVA, ARF, Chemo, Hep., AIDS, mental health diagnosis, sleep apnea, morbid obesity)? @ -None Was patient admitted / discharged? Hospital course, mention meds given and route, prescriptions, significant lab abnormalities, going to OR and other pertinent info. @ -Admitted. Patient presented emergency department for right flank pain and discoloration to the urine. Patient has a urostomy.No significant leukocytosis, hemoglobin 12.7; CMP is nonactionable at this time. UA is positive for nitrates, large leukocyte esterase, large blood, greater than [address] abdomen pelvis reveals no evidence for obstructive uropathy but or renal calculus the lower renal calculus. Patient will be started on IV antibiotics fo r treatment of urinary tract infection and admitted to the hospital. The case was discussed with Dr. Slaughter who was accepting of the admission. Case discussed with Dr. Lauren Undiagnosed new problem with uncertain prognosis? @ -No Drug Therapy requiring intensive monitoring for toxicity (Heparin, Nitro, Insulin, Cardizem)? @ -No Were any procedures done? @ -No Diagnosis/symptom? @ -UTI Acute, or Chronic, or Acute on Chronic? @ -Acute Uncomplicated (without systemic symptoms) or Complicated (systemic symptoms)? @ -Uncomplicated Side effects of treatment? @ -No Exacerbation, Progression, or Severe Exacerbation? @ -No Poses a threat to life or bodily function? How? (Chest pain, USA, MD, pneumonia, PE, COPD, DKA, ARF, appy, cholecystitis, CVA, Diverticulitis, Homicidal, Suicidal, threat to staff... and all critical care pts) @ -No - Lab Data Result diagrams: 10/24/24 05:02 10/24/24 05:02 Lab Results 10/20/24 10/20/24 10/20/24 Range/Units 16:15 16:50 16:50 WBC 8.05 (4.50-10.00) 10*3/uL RBC 4.83 (4.40-5.60) 10*6/uL Hgb 12.7 L (13.0-17.0) g/dL Hct 39.5 L (39.6-50.0) % MCV 81.8 (80.0-97.0) fL MCH 26.3 L (27.0-32.0) pg MCHC 32.2 (32.0-37.0) g/dL RDW (11.5-14.5) % Plt Count 300 (140-440) 10*3/uL MPV 9.4 L (9.5-12.2) fL Immature Gran % (Auto) 0.2 % Neutrophils % 79.9 % Lymphocytes % 12.0 % Monocytes % 6.3 % Eosinophils % 1.0 % Basophils % 0.6 % Immature Gran # 0.02 (0.00-0.04) 10*3/uL Neutrophils # 6.42 (1.80-7.70) 10*3/uL Lymphocytes # 0.97 (0.90-5.00) 10*3/uL Monocytes # 0.51 (0.20-1.00) 10*3/uL Eosinophils # 0.08 (0.04-0.35) 10*3/uL Basophils # 0.05 (0.00-0.10) 10*3/uL Sodium 137 (137-145) mmol/L Potassium 3.9 (3.5-5.1) mmol/L Chloride 105 (98-107) mmol/L Carbon Dioxide 23 (22-30) mmol/L Anion Gap 9 mmol/L BUN 13 (9-20) mg/dL Creatinine 0.55 L (0.66-1.25) mg/dL Est GFR (CKD-EPI)AfAm >90 (>60 ml/min/1.73 sqM) Est GFR (CKD-EPI)NonAf >90 (>60 ml/min/1.73 sqM) Glucose 98 (74-99) mg/dL Plasma Lactic Acid Reuben (0.7-2.0) mmol/L Calcium 9.1 (8.4-10.2) mg/dL Total Bilirubin 0.6 (0.2-1.3) mg/dL AST 14 L (17-59) U/L ALT 9 (4-49) U/L Alkaline Phosphatase 138 H (38-126) U/L Total Protein 7.1 (6.3-8.2) g/dL Albumin 3.5 (3.5-5.0) g/dL Prealbumin (18.0-42.0) mg/dL Urine Color Light Red Urine Appearance Turbid (Clear) Urine pH 8.0 (5.0-8.0) Ur Specific Felt 1.016 (1.001-1.035) Urine Protein 2+ H (Negative) Urine Glucose (UA) Negative (Negative) Urine Ketones Negative (Negative) Urine Blood Large H (Negative) Urine Nitrite Positive (Negative) Urine Bilirubin Negative (Negative) Urine Urobilinogen <2.0 (<2.0) mg/dL Ur Leukocyte Esterase Large H (Negative) Urine RBC >182 H (0-5) /hpf Urine WBC 140 H (0-5) /hpf Urine Bacteria Moderate H (None) /hpf Urine Mucus Many H (None) /hpf 10/20/24 10/21/24 10/22/24 Range/Units 16:50 14:40 10:13 WBC 7.63 (4.50-10.00) 10*3/uL RBC 4.09 L (4.40-5.60) 10*6/uL Hgb 10.6 L (13.0-17.0) g/dL Hct 34.1 L (39.6-50.0) % MCV 83.4 (80.0-97.0) fL MCH 25.9 L (27.0-32.0) pg MCHC 31.1 L (32.0-37.0) g/dL RDW 15.5 H (11.5-14.5) % Plt Count 277 (140-440) 10*3/uL MPV 9.5 (9.5-12.2) fL Immature Gran % (Auto) % Neutrophils % % Lymphocytes % % Monocytes % % Eosinophils % % Basophils % % Immature Gran # (0.00-0.04) 10*3/uL Neutrophils # (1.80-7.70) 10*3/uL Lymphocytes # (0.90-5.00) 10*3/uL Monocytes # (0.20-1.00) 10*3/uL Eosinophils # (0.04-0.35) 10*3/uL Basophils # (0.00-0.10) 10*3/uL Sodium (137-145) mmol/L Potassium (3.5-5.1) mmol/L Chloride (98-107) mmol/L Carbon Dioxide (22-30) mmol/L Anion Gap mmol/L BUN (9-20) mg/dL Creatinine (0.66-1.25) mg/dL Est GFR (CKD-EPI)AfAm (>60 ml/min/1.73 sqM) Est GFR (CKD-EPI)NonAf (>60 ml/min/1.73 sqM) Glucose (74-99) mg/dL Plasma Lactic Acid Reuben 0.7 (0.7-2.0) mmol/L Calcium (8.4-10.2) mg/dL Total Bilirubin (0.2-1.3) mg/dL AST (17-59) U/L ALT (4-49) U/L Alkaline Phosphatase (38-126) U/L Total Protein (6.3-8.2) g/dL Albumin (3.5-5.0) g/dL Prealbumin 12.2 L (18.0-42.0) mg/dL Urine Color Urine Appearance (Clear) Urine pH (5.0-8.0) Ur Specific Felt (1.001-1.035) Urine Protein (Negative) Urine Glucose (UA) (Negative) Urine Ketones (Negative) Urine Blood (Negative) Urine Nitrite (Negative) Urine Bilirubin (Negative) Urine Urobilinogen (<2.0) mg/dL Ur Leukocyte Esterase (Negative) Urine RBC (0-5) /hpf Urine WBC (0-5) /hpf Urine Bacteria (None) /hpf Urine Mucus (None) /hpf 10/22/24 Range/Units 10:13 WBC (4.50-10.00) 10*3/uL RBC (4.40-5.60) 10*6/uL Hgb (13.0-17.0) g/dL Hct (39.6-50.0) % MCV (80.0-97.0) fL MCH (27.0-32.0) pg MCHC (32.0-37.0) g/dL RDW (11.5-14.5) % Plt Count (140-440) 10*3/uL MPV (9.5-12.2) fL Immature Gran % (Auto) % Neutrophils % % Lymphocytes % % Monocytes % % Eosinophils % % Basophils % % Immature Gran # (0.00-0.04) 10*3/uL Neutrophils # (1.80-7.70) 10*3/uL Lymphocytes # (0.90-5.00) 10*3/uL Monocytes # (0.20-1.00) 10*3/uL Eosinophils # (0.04-0.35) 10*3/uL Basophils # (0.00-0.10) 10*3/uL Sodium 136 L (137-145) mmol/L Potassium 4.1 (3.5-5.1) mmol/L Chloride 106 (98-107) mmol/L Carbon Dioxide 23 (22-30) mmol/L Anion Gap 7 mmol/L BUN 10 (9-20) mg/dL Creatinine 0.61 L (0.66-1.25) mg/dL Est GFR (CKD-EPI)AfAm >90 (>60 ml/min/1.73 sqM) Est GFR (CKD-EPI)NonAf >90 (>60 ml/min/1.73 sqM) Glucose 107 H (74-99) mg/dL Plasma Lactic Acid Reuben (0.7-2.0) mmol/L Calcium 8.1 L (8.4-10.2) mg/dL Total Bilirubin (0.2-1.3) mg/dL AST (17-59) U/L ALT (4-49) U/L Alkaline Phosphatase (38-126) U/L Total Protein (6.3-8.2) g/dL Albumin (3.5-5.0) g/dL Prealbumin (18.0-42.0) mg/dL Urine Color Urine Appearance (Clear) Urine pH (5.0-8.0) Ur Specific Felt (1.001-1.035) Urine Protein (Negative) Urine Glucose (UA) (Negative) Urine Ketones (Negative) Urine Blood (Negative) Urine Nitrite (Negative) Urine Bilirubin (Negative) Urine Urobilinogen (<2.0) mg/dL Ur Leukocyte Esterase (Negative) Urine RBC (0-5) /hpf Urine WBC (0-5) /hpf Urine Bacteria (None) /hpf Urine Mucus (None) /hpf Disposition Clinical Impression: Pyelonephritis Disposition: ADMITTED IP TO THIS [facility] Condition: Stable Is patient prescribed a controlled substance at d/c from ED?: No
[2024-10-20] MEDS: diphenhydrAMINE 50 MG/ML 1 ML VIAL IVP STA ×2 (17:01→18:46)
[2024-10-20] MEDS: ONDANSETRON 4 MG/2 ML VIAL IVP STA (17:01)
[2024-10-20] MEDS: KETOROLAC 15 MG/ML 1 ML VIAL IVP STA (17:01)
[2024-10-20] MEDS: SODIUM CHLORIDE 0.9% 1,000 ML IV ONE (17:03)
[2024-10-20 17:14] LABS: Basophils # (A) 0.05 10*3/uL (0.00-0.10); Basophils % (A) 0.6 %; Eosinophils # (A) 0.08 10*3/uL (0.04-0.35); HCT 39.5 % (39.6-50.0); HGB 12.7 g/dL (13.0-17.0); Lymphocytes # (A) 0.97 10*3/uL (0.90-5.00); MCH 26.3 pg (27.0-32.0); MCHC 32.2 g/dL (32.0-37.0); MCV 81.8 fL (80.0-97.0); Mean Platelet Volume 9.4 fL (9.5-12.2); Monocytes # (A) 0.51 10*3/uL (0.20-1.00); Monocytes % (A) 6.3 %; Neutrophils # (A) 6.42 10*3/uL (1.80-7.70); Neutrophils % (A) 79.9 %; Platelet Count 300 10*3/uL (140-440); RBC 4.83 10*6/uL (4.40-5.60); WBC 8.05 10*3/uL (4.50-10.00)
[2024-10-20 17:28] LABS: ALT 9 U/L (4-49); AST 14 U/L (17-59); African American GFR (CKD) >90 (>60 ml/min/1.73 sqM); Albumin 3.5 g/dL (3.5-5.0); Alkaline Phosphatase 138 U/L (38-126); Anion Gap 9 mmol/L; Blood Urea Nitrogen 13 mg/dL (9-20); Calcium 9.1 mg/dL (8.4-10.2); Carbon Dioxide 23 mmol/L (22-30); Chloride 105 mmol/L (98-107); Glucose 98 mg/dL (74-99); Non-African American GFR(CKD) >90 (>60 ml/min/1.73 sqM); Potassium 3.9 mmol/L (3.5-5.1); Sodium 137 mmol/L (137-145); Total Bilirubin 0.6 mg/dL (0.2-1.3); Total Protein 7.1 g/dL (6.3-8.2)
--- NOTE | 2024-10-20 17:51 | CT ---
EXAMINATION TYPE: CT abdomen pelvis wo con DATE OF EXAM: 10/20/2024 5:27 PM COMPARISON: 09/03/2024. CLINICAL INDICATION: Male, 39 years old with history of right flank pain; Rt side flank pain. TECHNIQUE: Axial CT abdomen pelvis wo con;Sagittal and coronal reformats were created on a separate workstation. Contrast used: mL of , (none if empty) Oral contrast used: without Oral Contrast (none if empty) CT DLP: 1055.4 mGycm, Automated exposure control for dose reduction was used. FINDINGS: LOWER CHEST: Suspected catheter terminating in the right atrium. ABDOMEN LIVER: Unremarkable GALLBLADDER AND BILE DUCTS: The gallbladder is surgically absent. PANCREAS: Unremarkable. SPLEEN: Unremarkable. ADRENAL GLANDS: Unremarkable. KIDNEYS AND URETERS: No evidence of hydronephrosis or obstructing renal calculus. The ureters are unr emarkable. Left renal cortical mass with fat and soft tissue measuring up to 7.0 cm. PELVIS BLADDER: There is a calculus possibly within the bladder lumen near the prostatic urethra series 201 image 105. REPRODUCTIVE: Unremarkable. ABDOMEN & PELVIS STOMACH AND BOWEL: No evidence of bowel obstruction. Postsurgical changes to the bowel.. Colostomy ch anges of the left abdominal wall. PERITONEUM/RETROPERITONEUM: No evidence of pneumoperitoneum or free fluid. VASCULATURE: No evidence of aortic aneurysm. MUSCULOSKELETAL: No acute osseous abnormalities . Severe chronic degeneration changes of the hips wit h destructive changes of the joints left greater than right. Postsurgical changes spine with fixation are present. Scoliosis changes are present. Findings aren't significant change in spine. Chronic oss eous changes noted near the sacral decubitus ulcers extending to the ischial tuberosities. LYMPH NODES: No gross evidence for lymphadenopathy. SOFT TISSUE/ABDOMINAL WALL: Soft tissue skin defect extending to the ischial tuberosities bilaterally . Fatty atrophy changes of the lower extremity musculature. No organizing fluid collection identified . IMPRESSION: 1. No evidence for obstructive uropathy or renal calculus. The appendix is not visualized possibly s urgically absent. No evidence for right-sided acute process to explain the patient's pain. 2. Left renal fat-containing mass possibly representing angiomyolipoma versus posttreatment change t o prior mass measuring up to 7.0 cm. Not significantly changed from prior. Given size and has a prope nsity to bleed if it is a angiomyolipoma and measures greater than 4 cm. 3. Left decubitus ulcer not significantly changed from prior. Findings of possible chronic vasculiti s remain present and not significantly changed from prior. No organizing fluid collections. 4. Possible bladder stone near the prostatic urethra not significantly changed from prior. [facility], , 10/20/2024 5:49 PM
[2024-10-20] MEDS: HYDROmorphone 1 MG/ML 1 ML SYRINGE IVP STA (18:01)
[2024-10-20] MEDS ORDERED: KETOROLAC 15 MG/ML 1 ML VIAL IVP PRN (18:46)
[2024-10-20] MEDS ORDERED: NALOXONE 0.4 MG/ML 1 ML VIAL IV PRN (18:46)
[2024-10-20] MEDS: SODIUM CHLORIDE 0.9% 1,000 ML IV SCH (19:16)
[2024-10-20] MEDS: PIPERACILLIN-TAZOBACTAM 3.375 GM in SODIUM CHLORIDE 0.9% 100 ML IVPB SCH (19:17)
[2024-10-20] MEDS: HYDROmorphone 0.5 MG/0.5 ML SYRINGE IVP PRN (20:22)
[2024-10-21] MEDS: HYDROmorphone 1 MG/ML 1 ML SYRINGE IVP PRN (05:50)
[2024-10-21] MEDS: diphenhydrAMINE 25 MG CAP PO PRN (10:16)
[2024-10-21] MEDS: ONDANSETRON 4 MG/2 ML VIAL IVP PRN (10:16)
[2024-10-21] MEDS ORDERED: diphenhydrAMINE 50 MG CAP PO PRN (10:41)
[2024-10-21] MEDS: diphenhydrAMINE 50 MG/ML 1 ML VIAL IVP STA (13:15)
[2024-10-21] MEDS: APIXABAN 5 MG TAB PO SCH (13:16)
[2024-10-21] MEDS: FOLIC ACID 1 MG TAB PO SCH (13:16)
[2024-10-21] MEDS: TAMSULOSIN 0.4 MG CAP.ER.24H PO SCH (13:16)
[2024-10-21] MEDS: LORATADINE 10 MG TAB PO SCH (13:16)
[2024-10-21] MEDS: METOPROLOL SUCCINATE (ER) 25 MG TAB.ER.24H PO SCH (13:16)
[2024-10-21] MEDS: PANTOPRAZOLE 40 MG/10 ML VIAL IVP SCH (13:17)
[2024-10-21] MEDS: HYDROmorphone 2 MG TAB PO PRN (13:36)
--- NOTE | 2024-10-21 14:30 | P.HPIM ---
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 Denies nausea, vomiting or diarrhea. Denies abdominal pain. denies fevers. Denies chest pain, palpitations or shortness of breath. Denies lightheadedness dizziness or focal deficits. Afebrile, normal WBC, hemoglobin 12.7, platelets 300. Electrolytes within normal limits, bicarb 23, BUN 13, creatinine 0.55, GFR greater than 90 lactic acid 0.7, alk phos 138. UA reported 2+ protein, large blood, positive nitrates, large leukocyte esterase, greater than 182 urine RBCs, urine WBCs 140, moderate bacteria and many urine mucus. Abdomen/pelvis CT reported no evidence for obstructive uropathy or renal calculus, appendix not visualized -no evidence for right-sided acute process to explain patient's pain, left renal fat-containing mass-not significantly changed from prior, chronic vasculitis-not significantly changed from prior, no organizing fluid collections, possible bladder stones near prostatic urethra not significantly changed from prior. Review of Systems ROS Statement: Those systems with pertinent positive or pertinent negative responses have been documented in the HPI. ROS Other: All systems not noted in ROS Statement are negative. Past Medical History Past Medical History: Heart Failure, Deep Vein Thrombosis (DVT), GERD/Reflux, Hypertension, Musculoskeletal Disorder, Neurologic Disorder, Renal Disease, Skin Disorder Additional Past Medical History / Comment(s): WOUND STAGE 4 [place] wound clinic Q other week, kidney stone, scoliosis/kyphosis, spina bifida-T6 level, cervical stenosis History of Any Multi-Drug Resistant Organisms: C-DIFF, ESBL, MRSA Date of last positivie culture/infection: 2022 MDRO Source:: WOUND Past Surgical History: Appendectomy, Back Surgery, Bladder Surgery, Bowel Resec tion, Cholecystectomy, Orthopedic Surgery, Plyoromyotomy, Ventriculoperitoneal Shunt Additional Past Surgical History / Comment(s): Urostomy,Colostomy, [facility] shunt placed 2018, Lt rotator cuff repair, Infusaport LT chest, Spinal fusion at 7 years old Past Anesthesia/Blood Transfusion Reactions: No Reported Reaction Past Psychological History: Depression Smoking Status: Never smoker Past Alcohol Use History: None Reported Past Drug Use History: None Reported - Past Family History Mother Family Medical History: Diabetes Mellitus Additional Family Medical History / Comment(s): spine issues Medications and Allergies Home Medications Medication Instructions Recorded Confirmed Type Apixaban [Eliquis] 5 mg PO BID 07/17/24 10/20/24 History Metoclopramide HCl [Reglan] 10 mg PO AC-BID 07/17/24 10/20/24 History Pantoprazole Sodium 40 mg PO AC-BRKFST 07/17/24 10/20/24 History Tamsulosin [Flomax] 0.4 mg PO DAILY 07/17/24 10/20/24 History buPROPion XL [Wellbutrin XL] 150 mg PO HS 07/17/24 10/20/24 History traZODone HCL [Desyrel] 50 mg PO HS PRN 07/17/24 10/20/24 History HYDROmorphone HCL 2 mg PO TID PRN 09/03/24 10/20/24 History Metoprolol Succinate (ER) [Toprol 25 mg PO DAILY 09/03/24 10/20/24 History XL] Folic Acid 0.8 mg PO DAILY 09/30/24 10/20/24 History Loratadine [Claritin] 10 mg PO DAILY 09/30/24 10/20/24 History Triamcinolone 0.025% Cream 1 applic TOPICAL BID 09/30/24 10/20/24 History [Kenalog 0.025% Cream] Allergies Allergy/AdvReac Type Severity Reaction Status Date / Time amoxicillin Allergy Rash/Hives Verified 10/20/24 19:34 barium sulfate Allergy Dyspnea Verified 10/20/24 19:34 cefepime Allergy Rash/Hives Verified 10/20/24 19:34 ceftriaxone Allergy Rash/Hives Verified 10/20/24 19:34 fentanyl Allergy Rash/Hives Verified 10/20/24 19:34 Iodinated Contrast Media Allergy Dyspnea Verified 10/20/24 19:34 latex Allergy Rash/Hives Verified 10/20/24 19:34 morphine Allergy Anaphylaxis Verified 10/20/24 19:34 ondansetron [From Zofran] Allergy Rash/Hives Verified 10/20/24 19:34 prochlorperazine Allergy Rash/Hives Verified 10/20/24 19:34 [From Compazine] Physical Exam Vitals: Vital Signs Temp Pulse Pulse Resp BP BP Pulse Ox 10/21/24 08:00 18 10/21/24 07:17 98.5 F 97 18 108/72 93 L 10/21/24 00:47 98.2 F 81 18 102/65 99 10/20/24 21:46 98.3 F 85 18 130/82 99 10/20/24 21:03 71 18 109/75 100 10/20/24 19:26 74 19 116/75 99 10/20/24 18:03 88 19 107/85 100 10/20/24 17:13 67 20 121/62 99 10/20/24 15:34 98.6 F 80 16 132/83 99 Intake and Output 10/20/24 10/21/24 10/21/24 22:59 06:59 14:59 Intake Total 1080 Output Total 550 Balance 530 Intake: Oral 1080 Output: Urine 550 Other: Voiding Method Ileal Conduit (Right) Weight 81.647 kg PHYSICAL EXAM: VITAL SIGNS: [Reviewed] GENERAL:-year-old gentleman with spina bifida ,alert and oriented x 3, sitting up in bed, no acute distress. HEENT: Conjunctivae normal. eyes normal. MMM. NECK: Supple, no JVD. CARDIOVASCULAR: S1, S2 regular. No murmur RESPIRATION: Kyphosis .unlabored, equal air entry .breath sounds diminished in the bases. No rhonchi or crackles. No bronchial breathing. ABDOMEN: Soft, nontender . No guarding. no masses palpable. No ascites, No hepatosplenomegaly.Bowel sounds heard. LEGS: Bilateral lower legs' superficial erythema, pink, no drainage. PSYCHIATRY: Alert and oriented X3, mood and affect normal. NERVOUS SYSTEM: Cranial N 2-12 grossly normal.No focal deficits. Skin: Chronic stage IV left ischium , stage IV sacrum, pressure ulcer right ischium, left and right lower extremities' chronic nonpressure ulcers, refer to nursing documentation for specific sizing. Results CBC & Chem 7: 10/20/24 16:50 10/22/24 10:13 Labs: Abnormal Lab Results - Last 24 Hours (Table) 10/20/24 10/20/24 10/20/24 Range/Units 16:15 16:50 16:50 Hgb 12.7 L (13.0-17.0) g/dL Hct 39.5 L (39.6-50.0) % MCH 26.3 L (27.0-32.0) pg MPV 9.4 L (9.5-12.2) fL Creatinine 0.55 L (0.66-1.25) mg/dL AST 14 L (17-59) U/L Alkaline Phosphatase 138 H (38-126) U/L Urine Protein 2+ H (Negative) Urine Blood Large H (Negative) Ur Leukocyte Esterase Large H (Negative) Urine RBC >182 H (0-5) /hpf Urine WBC 140 H (0-5) /hpf Urine Bacteria Moderate H (None) /hpf Urine Mucus Many H (None) /hpf Thrombosis Risk Factor Assmnt - Choose All That Apply Any of the Below Risk Factors Present?: Yes Each Factor Represents 1 point: Medical pt on bed rest, Obesity (BMI >25) Thrombosis Risk Factor Assessment Total Risk Factor Score: 2 Thrombosis Risk Factor Assessment Level: Low Risk Assessment and Plan Assessment: Acute pyelonephritis, UA reporting positive nitrates, large blood, large leukocytes, moderate bacteria, accompanied by right flank pain, urine culture pending. CT reporting possible bladder stone , left renal cortical mass unchanged from prior. Chronic osteomyelitis with chronic pressure ulcers;Stage IV left ischium , stage IV sacrum, pressure ulcer right ischium, left and right lower extremities' chronic nonpressure ulcers, follows with [facility] wound [facility]. History of irregular fat-containing mass arising from the left kidney measuring up to 7.3 cm, possibly related to posttreatment, possible angiomyolipoma, patient has already been scheduled for outpatient follow-up with urology per wound care team. Spina bifida History of COMPOUND FILLER shunt History of MDRO infections including C. difficile, ESBL, MRSA Hypertension chronic renal failure stage 1 history of DVT, anticoagulated on Eliquis Morbid obesity, BMI 33 Urostomy Depression Hypoalbuminemia Pain contract Plan: Continue on current medication regimen ,monitoring and symptomatic treatment. urine and blood cultures pending. Wound cultures ordered. continue on anticoagulation with Eliquis, GI prophylaxis with PPI, antibiotics and pain management. Dilaudid IV push discontinued, transitioned to patient's home med regimen -oral Dilaudid.patient reports it does not always control his pain - [place] added for breakthrough pain .ID consulted given multiple drug allergies, history of multiple drug-resistant organism infections. Prealbumin ordered. Wound care as per [facility] wound care team.urology consult in place. The impression and plan of care has been dictated as directed. : I performed a history and examination of this patient, discussed the same with the dictator. I agree with the dictator's note ,documented as a scribe. Any additional findings or plans will be noted.
[2024-10-21 14:41] VITALS: BMI 32.9
[2024-10-21] MEDS: METOCLOPRAMIDE 10 MG TAB PO SCH (18:22)
[2024-10-21] MEDS: buPROPion XL 150 MG TAB.ER.24H PO SCH (22:07)
--- NOTE | 2024-10-22 09:27 | P.CONS ---
History of Present Illness - Reason for Consult Consult date: 10/21/24 UTI, history of ESBL, multiple allergies Requesting physician: Ruth Cohen - Chief Complaint Flank pain x 3 days - History of Present Illness Patient is a 39-year-old male with a past medical history significant for spina bifida cervical stenosis hypertension reflux and DVT previous history of C. difficile did have urostomy as well as a colostomy presenting to the hospital for evaluation of right flank pain patient pain started on Monday that is 3 days before presentation to the hospital describing the pain to be mostly dull aching to show moderate intensity without any radiation also noticed to having change in the color of the urine becoming more bloody with the same with the patient was in the hospital on arrival to the patient was afebrile no fever have been called subsequently patient was nontachycardic hypotensive and hypoxic or need for supplemental oxygen did have a temp of 8.5 creatinine 0.54 urine has been positive cultures are currently pending patient has been started on Zosyn infectious disease was consulted for further management of antibiotic therapy with last urine culture from 325 did shows a drug-resistant Klebsiella sensitive to Zosyn as well as ceftriaxone, patient did have abdominal pelvis CT there is a calculus possibly within the bladder lumen in the prostatic urethra no evidence of hydronephrosis and left renal cortical mass Review of Systems Positive point and negatives has been mentioned in the HPI, complete review of systems was performed and all other systems are negative Past Medical History Past Medical History: Heart Failure, Deep Vein Thrombosis (DVT), GERD/Reflux, Hypertension, Musculoskeletal Disorder, Neurologic Disorder, Renal Disease, Skin Disorder Additional Past Medical History / Comment(s): WOUND STAGE 4 [place] wound clinic Q other week, kidney stone, scoliosis/kyphosis, spina bifida-T6 level, cervical stenosis History of Any Multi-Drug Resistant Organisms: C-DIFF, ESBL, MRSA Year Discovered:: 2022 MDRO Source:: WOUND Past Surgical History: Appendectomy, Back Surgery, Bladder Surgery, Bowel Resection, Cholecystectomy, Orthopedic Surgery, Plyoromyotomy, Ventriculoperitoneal Shunt Additional Past Surgical History / Comment(s): Urostomy,Colostomy, [facility] shunt placed 2018, Lt rotator cuff repair, Infusaport LT chest, Spinal fusion at 7 years old Past Anesthesia/Blood Transfusion Reactions: No Reported Reaction Past Psychological History: Depression Smoking Status: Never smoker Past Alcohol Use History: None Reported Past Drug Use History: None Reported - Past Family History Mother Family Medical History: Diabetes Mellitus Additional Family Medical History / Comment(s): spine issues Medications and Allergies Home Medications Medication Instructions Recorded Confirmed Type Apixaban [Eliquis] 5 mg PO BID 07/17/24 10/20/24 History Metoclopramide HCl [Reglan] 10 mg PO AC-BID 07/17/24 10/20/24 History Pantoprazole Sodium 40 mg PO AC-BRKFST 07/17/24 10/20/24 History Tamsulosin [Flomax] 0.4 mg PO DAILY 07/17/24 10/20/24 History buPROPion XL [Wellbutrin XL] 150 mg PO HS 07/17/24 10/20/24 History traZODone HCL [Desyrel] 50 mg PO HS PRN 07/17/24 10/20/24 History HYDROmorphone HCL 2 mg PO TID PRN 09/03/24 10/20/24 History Metoprolol Succinate (ER) [Toprol 25 mg PO DAILY 09/03/24 10/20/24 History XL] Folic Acid 0.8 mg PO DAILY 09/30/24 10/20/24 History Loratadine [Claritin] 10 mg PO DAILY 09/30/24 10/20/24 History Triamcinolone 0.025% Cream 1 applic TOPICAL BID 09/30/24 10/20/24 History [Kenalog 0.025% Cream] Allergies Allergy/AdvReac Type Severity Reaction Status Date / Time amoxicillin Allergy Rash/Hives Verified 10/20/24 19:34 barium sulfate Allergy Dyspnea Verified 10/20/24 19:34 cefepime Allergy Rash/Hives Verified 10/20/24 19:34 ceftriaxone Allergy Rash/Hives Verified 10/20/24 19:34 fentanyl Allergy Rash/Hives Verified 10/20/24 19:34 Iodinated Contrast Media Allergy Dyspnea Verified 10/20/24 19:34 latex Allergy Rash/Hives Verified 10/20/24 19:34 morphine Allergy Anaphylaxis Verified 10/20/24 19:34 ondansetron [From Zofran] Allergy Rash/Hives Verified 10/20/24 19:34 prochlorperazine Allergy Rash/Hives Verified 10/20/24 19:34 [From Compazine] Physical Exam Vitals: Vital Signs Temp Pulse Pulse Resp BP BP Pulse Ox 10/21/24 08:00 18 10/21/24 07:17 98.5 F 97 18 108/72 93 L 10/21/24 00:47 98.2 F 81 18 102/65 99 10/20/24 21:46 98.3 F 85 18 130/82 99 10/20/24 21:03 71 18 109/75 100 10/20/24 19:26 74 19 116/75 99 10/20/24 18:03 88 19 107/85 100 10/20/24 17:13 67 20 121/62 99 10/20/24 15:34 98.6 F 80 16 132/83 99 Intake and Output 10/21/24 10/21/24 10/21/24 06:59 14:59 22:59 Intake Total 1080 Output Total 550 Balance 530 Intake: Oral 1080 Output: Urine 550 Other: Voiding Method Ileal Conduit (Right) Weight 81.647 kg GENERAL DESCRIPTION: Middle-age male lying in bed, no distress. No tachypnea or accessory muscle of respiration use. HEENT: Shows Pallor , no scleral icterus. Oral mucous membrane is dry. NECK: Trachea central, no thyromegaly. LUNGS: Unlabored breathing. Clear to auscultation anteriorly. HEART: S1, S2, regular rate and rhythm. No loud murmur ABDOMEN: Soft, no tenderness , EXTREMITIES: Bilateral lower extremity some superficial ulceration erythema SKIN: No rash, no masses palpable. NEUROLOGICAL: The patient is awake, alert, oriented x3, mood and affect normal. Results CBC & Chem 7: 10/20/24 16:50 10/20/24 16:50 Labs: Abnormal Lab Results - Last 24 Hours (Table) 10/20/24 10/20/24 10/20/24 Range/Units 16:15 16:50 16:50 Hgb 12.7 L (13.0-17.0) g/dL Hct 39.5 L (39.6-50.0) % MCH 26.3 L (27.0-32.0) pg MPV 9.4 L (9.5-12.2) fL Creatinine 0.55 L (0.66-1.25) mg/dL AST 14 L (17-59) U/L Alkaline Phosphatase 138 H (38-126) U/L Urine Protein 2+ H (Negative) Urine Blood Large H (Negative) Ur Leukocyte Esterase Large H (Negative) Urine RBC >182 H (0-5) /hpf Urine WBC 140 H (0-5) /hpf Urine Bacteria Moderate H (None) /hpf Urine Mucus Many H (None) /hpf Assessment and Plan (1) Pyelonephritis Current Visit: Yes Status: Acute Code(s): N12 - TUBULO-INTERSTITIAL NEPHRITIS, NOT SPCF ACUTE OR CHRONIC SNOMED Code(s): 52894518 (2) Allergy to multiple antibiotics Current Visit: No Status: Acute Code(s): Z88.1 - ALLERGY STATUS TO OTHER ANTIBIOTIC AGENTS SNOMED Code(s): 811493019 Plan: 1patient presented to hospital with right flank pain did have hematuria significantly positive UA and this patient did have abnormal CT abdominal pelvis which shows evidence of stone in the bladder and left renal cortical mass patient did have history of recurrent UTI however last urine culture did shows Klebsiella that was sensitive to Zosyn that ESBL. 2patient with multiple antibiotic ALLERGIES that would limit the number of antibiotic safe to use 3for now we will treat the patient with Zosyn while waiting for the culture to finalize and await urology evaluation for the bladder stone as well as left cortical renal mass. We will follow on clinical condition and cultures to further adjust medication if needed Thank you for this consultation we will follow the patient along with you Dictation was produced using [employer] dictation software. please excuse any grammatical, word or spelling errors. Time with Patient: Greater than 30
[2024-10-22] MEDS: HYDROcodone/APAP 5-325MG 1 EACH TAB PO PRN (10:03)
[2024-10-22] MEDS: diphenhydrAMINE 50 MG CAP PO PRN (10:29)
--- NOTE | 2024-10-22 10:35 | P.CONS ---
History of Present Illness - Reason for Consult Consult date: 10/22/24 wound care - History of Present Illness This is a 39-year-old gentleman known to the wound care center with history of chronic osteomyelitis chronic stage IV pressure ulcer and spina bifida. Patient moved from [place] to [place]. We have been utilizing honey gel to the ulcerations. Last week at his wound care visit it was found that his penis is visible through his midline sacral ulceration. Patient was set up to see urology. Original cause of wound was Gradually Appeared. The date acquired was: 06/12/2023. The wound has been in treatment 4 weeks. The wound is currently classified as a Partial Thickness wound with etiology of Venous Leg Ulcer and is located on the Left,Circumferential Lower Leg. The wound measures 0cm length x 0cm width x 0cm depth; 0cm^2 area and 0cm^3 volume. There is no tunneling or undermining noted. There is a none present amount of drainage noted. The wound margin is indistinct and nonvisible. There is no granulation within the wound bed. There is no necrotic tissue within the wound bed. The periwound skin appearance exhibited: Dry/Scaly, Maceration, Hemosiderin Staining. The periwound skin appearance did not exhibit: Callus, Crepitus, Excoriation, Induration, Rash, Scarring, Atrophie Rusk, Cyanosis, Ecchymosis, Mottled, Pallor, Rubor, Erythema. Periwound temperature was noted as No Abnormality. Original cause of wound was Gradually Appeared. The date acquired was: 06/12/2023. The wound has been in treatment 4 weeks. The wound is currently classified as a Partial Thickness wound with etiology of Venous Leg Ulcer and is located on the Right,Circumferential Lower Leg. The wound measures 13.7cm length x 6.5cm width x 0.1cm depth; 69.94cm^2 area and 6.994cm^3 volume. There is no tunneling or undermining noted. There is a medium amount of serous drainage noted. The wound margin is indistinct and nonvisible. There is medium (34-66%) pink granulation within the wound bed. There is a medium (34-66%) amount of necrotic tissue within the wound bed including Adherent Slough. The periwound skin appearance exhibited: Dry/Scaly, Maceration, Hemosiderin Staining. The periwound skin appearance did not exhibit: Callus, Crepitus, Excoriation, Induration, Rash, Scarring, Atrophie Geovanna, Cyanosis, Ecchymosis, Mottled, Pallor, Rubor, Erythema. Original cause of wound was Pressure Injury. The date acquired was: 06/12/2023. The wound has been in treatment 4 weeks. The wound is currently classified as a Category/Stage IV wound with etiology of Pressure Ulcer and is located on the Left Ischium. The wound measures 3cm length x 1.7cm width x 3cm depth; 4.006cm^2 area and 12.017cm^3 volume. There is muscle, Fat Layer (Subcutaneous Tissue), and fascia exposed. There is no tunneling or undermining noted. There is a large amount of serosanguineous drainage noted. The wound cliff in is fibrotic, thickened scar. There is medium (34-66%) red granulation within the wound bed. There is a medium (34-66%) amount of necrotic tissue within the wound bed including Adherent Slough. The periwound skin appearance exhibited: Excoriation, Maceration, Erythema. The periwound skin appearance did not exhibit: Callus, Crepitus, Induration, Rash, Scarring, Dry/Scaly, Atrophie Rusk, Cyanosis, Ecchymosis, Hemosiderin Staining, Mottled, Pallor, Rubor. The surrounding wound skin color is noted with erythema which is circumferential. Periwound temperature was noted as No Abnormality. Original cause of wound was Pressure Injury. The date acquired was: 06/12/2023. The wound has been in treat ment 4 weeks. The wound is currently classified as a Category/Stage IV wound with etiology of Pressure Ulcer and is located on the Right Ischium. The wound measures 1.4cm length x 3.5cm width x 2cm depth; 3.848cm^2 area and 7.697cm^3 volume. There is muscle, Fat Layer (Subcutaneous Tissue), and fascia exposed. There is no tunneling or undermining noted. There is a large amount of serosanguineous drainage noted. The wound margin is fibrotic, thickened scar. There is large (67-100%) red granulation within the wound bed. There is a small (1-33%) amount of necrotic tissue within the wound bed including Adherent Slough. The periwound skin appearance exhibited: Excoriation, Erythema. The periwound skin appearance did not exhibit: Callus, Crepitus, Induration, Rash, Scarring, Dry/Scaly, Maceration, Atrophie Geovanna, Cyanosis, Ecchymosis, Hemosiderin Staining, Mottled, Pallor, Rubor. The surrounding wound skin color is noted with erythema which is circumferential. Periwound temperature was noted as No Abnormality. Review Of Systems: Constitutional: No fever, no chills, no night sweats. No weight change. No weakness, fatigue or lethargy. No daytime sleepiness. Integumentary:reports wounds, no lesions. No rash or pruritus. No unusual bruising. No change in hair or nails. Physical exam: General Appearance: Alert, cooperative, no distress, appears stated age. Skin: See HPI all other Skin color, texture, tugor normal, no rashes or lesions. Neurologic: Alert oriented x3 Assessment: 1.Pressure ulcer right ischium 2. Stage IV pressure ulcer left ischium 3. Stage IV pressure ulcer sacrum 4. nonpressure chronic ulcer of other part of left lower extremity limited to skin breakdown 5. Nonpressure chronic ulcer of other part of right lower leg limited to skin breakdown 6. Chronic osteomyelitis 7. Spina bifida Plan: 1. Left lower extremity: Apply honey gel to ulcer, bag balm to periwound, dry gauze, rolled gauze and secure with tape. Wrap with elgin wrap. Right lower extrem ity: Apply bag balm and elgin wrap. Right/Left Ischium: Apply honey gel to ulcer,absorptive silver to midline of ulceration over exposed penis. Cover with abd and avoid tape. Patient to return to the wound care center on November 05 @ 1:30 Thank for the consultation any questions please contact the wound care center DNP note has been reviewed and discussed with Dr. Sevilla and the impression and plan of care has been directed as dictated. Past Medical History Past Medical History: Heart Failure, Deep Vein Thrombosis (DVT), GERD/Reflux, Hypertension, Musculoskeletal Disorder, Neurologic Disorder, Renal Disease, Skin Disorder Additional Past Medical History / Comment(s): WOUND STAGE 4 [facility] wound clinic Q other week, kidney stone, scoliosis/kyphosis, spina bifida-T6 level, cervical stenosis History of Any Multi-Drug Resistant Organisms: C-DIFF, ESBL, MRSA Year Discovered:: 2022 MDRO Source:: WOUND Past Surgical History: Appendectomy, Back Surgery, Bladder Surgery, Bowel Resection, Cholecystectomy, Orthopedic Surgery, Plyoromyotomy, Ventriculoperitoneal Shunt Additional Past Surgical History / Comment(s): Urostomy,Colostomy, [facility] shunt placed 2018, Lt rotator cuff repair, Infus[place] LT chest, Spinal fusion at 7 years old Past Anesthesia/Blood Transfusion Reactions: No Reported Reaction Past Psychological History: Depression Smoking Status: Never smoker Past Alcohol Use History: None Reported Past Drug Use History: None Reported - Past Family History Mother Family Medical History: Diabetes Mellitus Additional Family Medical History / Comment(s): spine issues Medications and Allergies Home Medications Medication Instructions Recorded Confirmed Type Apixaban [Eliquis] 5 mg PO BID 07/17/24 10/20/24 History Metoclopramide HCl [Reglan] 10 mg PO AC-BID 07/17/24 10/20/24 History Pantoprazole Sodium 40 mg PO AC-BRKFST 07/17/24 10/20/24 History Tamsulosin [Flomax] 0.4 mg PO DAILY 07/17/24 10/20/24 History buPROPion XL [Wellbutrin XL] 150 mg PO HS 07/17/24 10/20/24 History traZODone HCL [Desyrel] 50 mg PO HS PRN 07/17/24 10/20/24 History HYDROmorphone HCL 2 mg PO TID PRN 09/03/24 10/20/24 History Metoprolol Succinate (ER) [Toprol 25 mg PO DAILY 09/03/24 10/20/24 History XL] Folic Acid 0.8 mg PO DAILY 09/30/24 10/20/24 History Loratadine [Claritin] 10 mg PO DAILY 09/30/24 10/20/24 History Triamcinolone 0.025% Cream 1 applic TOPICAL BID 09/30/24 10/20/24 History [Kenalog 0.025% Cream] Allergies Allergy/AdvReac Type Severity Reaction Status Date / Time amoxicillin Allergy Rash/Hives Verified 10/20/24 19:34 barium sulfate Allergy Dyspnea Verified 10/20/24 19:34 cefepime Allergy Rash/Hives Verified 10/20/24 19:34 ceftriaxone Allergy Rash/Hives Verified 10/20/24 19:34 fentanyl Allergy Rash/Hives Verified 10/20/24 19:34 Iodinated Contrast Media Allergy Dyspnea Verified 10/20/24 19:34 latex Allergy Rash/Hives Verified 10/20/24 19:34 morphine Allergy Anaphylaxis Verified 10/20/24 19:34 ondansetron [From Zofran] Allergy Rash/Hives Verified 10/20/24 19:34 prochlorperazine Allergy Rash/Hives Verified 10/20/24 19:34 [From Compazine] Physical Exam Vitals: Vital Signs Temp Pulse Resp BP Pulse Ox 10/22/24 07:59 102/70 10/22/24 07:29 98.9 F 75 16 95/63 98 10/22/24 02:02 99.9 F H 84 17 98/65 96 10/21/24 20:24 98.5 F 63 16 106/67 98 10/21/24 14:00 98.3 F 93 18 113/70 92 L Intake and Output 10/21/24 10/22/24 10/22/24 22:59 06:59 14:59 Intake Total 900 Output Total 2350 Balance -2350 900 Intake: Intake, IV Titration 900 Amount Piperacillin-Tazobactam 3 200 .375 gm In Sodium Chloride 0.9% 100 ml @ 200 mls/hr IVPB Q8H [facility] Rx#:[id number] Sodium Chloride 0.9% 1, 700 000 ml @ 75 mls/hr IV . [id number] [facility] Rx#:[id number] Output: Urine 2350 Other: Voiding Method Ileal Conduit (Right) Results CBC & Chem 7: 10/20/24 16:50 10/20/24 16:50 Labs: Abnormal Lab Results - Last 24 Hours (Table) 10/21/24 Range/Units 14:40 Prealbumin 12.2 L (18.0-42.0) mg/dL Microbiology - Last 24 Hours (Table) 10/20/24 16:15 Urine Culture - Preliminary Urine,Clean Catch 10/20/24 19:10 Blood Culture Gram Stain - Preliminary Blood Blood Culture - Preliminary Molecular ID Assessment and Plan (1) Non-pressure chronic ulcer of other part of left lower leg limited to breakdown of skin Current Visit: No Status: Acute Code(s): L97.821 - NON-PRS CHR ULCER OTH PRT L LOW LEG LIMITED TO BRKDWN SKIN SNOMED Code(s): 51729190472795588 (2) Non-pressure chronic ulcer of other part of right lower leg limited to breakdown of skin Current Visit: No Status: Acute Code(s): L97.811 - NON-PRS CHR ULCER OTH PRT R LOW LEG LIMITED TO BRKDWN SKIN SNOMED Code(s): 74675005922392178 (3) Pressure ulcer of left hip, stage 4 Current Visit: No Status: Acute Code(s): L89.224 - PRESSURE ULCER OF LEFT HIP, STAGE 4 SNOMED Code(s): 24619829694837 (4) Pressure ulcer of right hip, stage 4 Current Visit: No Status: Acute Code(s): L89.214 - PRESSURE ULCER OF RIGHT HIP, STAGE 4 SNOMED Code(s): 29684790540681 (5) Pressure ulcer of sacral region, stage 3 Current Visit: No Status: Acute Code(s): L89.153 - PRESSURE ULCER OF SACRAL REGION, STAGE 3 SNOMED Code(s): 66598765254572
[2024-10-22 10:41] LABS: African American GFR (CKD) >90 (>60 ml/min/1.73 sqM); Anion Gap 7 mmol/L; Blood Urea Nitrogen 10 mg/dL (9-20); Calcium 8.1 mg/dL (8.4-10.2); Carbon Dioxide 23 mmol/L (22-30); Chloride 106 mmol/L (98-107); Glucose 107 mg/dL (74-99); Non-African American GFR(CKD) >90 (>60 ml/min/1.73 sqM); Potassium 4.1 mmol/L (3.5-5.1); Sodium 136 mmol/L (137-145)
[2024-10-22 10:45] LABS: HCT 34.1 % (39.6-50.0); HGB 10.6 g/dL (13.0-17.0); MCH 25.9 pg (27.0-32.0); MCHC 31.1 g/dL (32.0-37.0); MCV 83.4 fL (80.0-97.0); Mean Platelet Volume 9.5 fL (9.5-12.2); Platelet Count 277 10*3/uL (140-440); RBC 4.09 10*6/uL (4.40-5.60); RDW 15.5 % (11.5-14.5); WBC 7.63 10*3/uL (4.50-10.00)
--- NOTE | 2024-10-22 11:22 | P.PN ---
Subjective Progress Note Date: 10/22/24 H&P Date: 10/21/24 Chief Complaint: Right flank pain, blood in urine This is a 39-year-old gentleman recently relocated from [place] with multiple medical issues including spina bifida, chronic osteomyelitis, chronic wounds stage IV sacral and bilateral lower extremities, follows with [facility] wound care clinic monthly, multidrug-resistant organism infections including C. difficile, ESBL, MRSA, hypertension, chronic renal failure, DVT-anticoagulated on Eliquis, B[employer] shunt-which he states has been redirected into his heart in 2020, urostomy, colostomy , kidney stones ,depression, morbid obesity, presented to the ER with right flank pain increasing in severity since Monday accompanied by blood in urine and chills. Denies nausea, vomiting or diarrhea. Denies abdominal pain. denies fevers. Denies chest pain, palpitations or shortness of breath. Denies lightheadedness dizziness or focal deficits. Afebrile, normal WBC, hemoglobin 12.7, platelets 300. Electrolytes within normal limits, bicarb 23, BUN 13, creatinine 0.55, GFR greater than 90 lactic acid 0.7, alk phos 138. UA reported 2+ protein, large blood, positive nitrates, large leukocyte esterase, greater than 182 urine RBCs, urine WBCs 140, moderate bacteria and many urine mucus. Abdomen/pelvis CT reported no evidence for obstructive uropathy or renal calculus, appendix not visualized -no evidence for right-sided acute process to explain patient's pain, left renal fat-containing mass-not significantly changed from prior, chronic vasculitis-not significantly changed from prior, no organizing fluid collections, possible bladder stones near prostatic urethra not significantly changed from prior. 10/22/2024 evaluated by infectious disease, recommendations noted. Continues on Zosyn. Blood cultures reporting molecular ID. Urine culture in progress .Tmax 99.9, WBC 7.63, hemoglobin 10.6, platelets 277, sodium 136, potassium 4.1, bicarb 23, BUN 10, creatinine 0.61. Blood sugars controlled. Prealbumin 12.2. Continues on wound care as per wound care team. During exam patient is not itching,non-diaphoretic, appears comfortable, calm, conversing. Asking for an additional Dilaudid. Pain management team consulted, whom he has a pain contract with outpatient. Objective - Vital Signs Vital signs: Vital Signs Temp 98.9 F 10/22/24 07:29 Pulse 75 10/22/24 07:29 Resp 16 10/22/24 07:29 BP 102/70 10/22/24 07:59 Pulse Ox 98 10/22/24 07:29 FiO2 Intake & Output 10/21/24 10/22/24 10/22/24 18:59 06:59 18:59 Intake Total 900 Output Total 2350 Balance -2350 900 Weight 81.647 kg Intake: Intake, IV Titration 900 Amount Piperacillin-Tazobactam 3 200 .375 gm In Sodium Chloride 0.9% 100 ml @ 200 mls/hr IVPB Q8H [facility] Rx#:[id number] Sodium Chloride 0.9% 1, 700 000 ml @ 75 mls/hr IV . [id number] [facility] Rx#:[id number] Output: Urine 2350 Other: Voiding Method Ileal Conduit (Right) Ileal Conduit (Right) - Exam PHYSICAL EXAM: VITAL SIGNS: [Reviewed] GENERAL:Alert and oriented x 3, flat affect, 39year-old gentleman with spina bifida ,sitting up in bed, no acute distress. HEENT: Conjunctivae normal. eyes normal. MMM. NECK: Supple, no JVD. CARDIOVASCULAR: S1, S2 regular. No murmur RESPIRATION: Kyphosis .unlabored, equal air entry .breath sounds diminished in the bases. ABDOMEN: Soft, nontender . No guarding. no masses palpable. Positive bowel sounds. LEGS: Bilateral lower legs erythema, pink, no drainage. NERVOUS SYSTEM: Cranial N 2-12 grossly normal.No focal deficits. Skin: Chronic stage IV left ischium , stage IV sacrum, pressure ulcer right ischium, left and right lower extremities' chronic nonpressure ulcers, refer to wound care team documentation for specific sizing. - Labs CBC & Chem 7: 10/22/24 10:13 10/22/24 10:13 Labs: Abnormal Lab Results - Last 24 Hours (Table) 10/21/24 Range/Units 14:40 Prealbumin 12.2 L (18.0-42.0) mg/dL Microbiology - Last 24 Hours (Table) 10/20/24 16:15 Urine Culture - Preliminary Urine,Clean Catch 10/20/24 19:10 Blood Culture Gram Stain - Preliminary Blood Blood Culture - Preliminary Molecular ID Assessment and Plan Assessment: Acute pyelonephritis, UA reporting positive nitrates, large blood, large leukocytes, moderate bacteria, accompanied by right flank pain, urine culture pending. CT reporting possible bladder stone , left renal cortical mass unchanged from prior. Chronic osteomyelitis with chronic pressure ulcers;Stage IV left ischium , stage IV sacrum, pressure ulcer right ischium, left and right lower extremities' chronic nonpressure ulcers, follows with [facility] wound care clinic. History of irregular fat-containing mass arising from the left kidney measuring up to 7.3 cm, possibly related to posttreatment, possible angiomyolipoma, outpatient urology follow-up recommended. Spina bifida History of BAKERY HELPER shunt History of MDRO infections including C. difficile, ESBL, MRSA Hypertension chronic renal failure stage 1 history of DVT, anticoagulated on Eliquis Morbid obesity, BMI 33 Urostomy Depression Hypoalbuminemia Pain contract Plan: Continue on current medication regimen ,monitoring and symptomatic treatment. Wound, urine and blood cultures in progress. antibiotics as per ID .pain management team consulted.urology consult in place.Pre, albumin 12.2, dietary consulted/increased protein intake. The impression and plan of care has been dictated as directed. : I performed a history and examination of this patient, discussed the same with the dictator. I agree with the dictator's note ,documented as a scribe. Any additional findings or plans will be noted.
--- NOTE | 2024-10-22 16:05 | P.PN ---
Subjective Progress Note Date: 10/22/24 Principal diagnosis: Reason for follow-up is UTI/pyelonephritis Patient is a 39-year-old male with a past medical history significant for spina bifida cervical stenosis hypertension reflux and DVT previous history of C. difficile did have urostomy as well as a colostomy presenting to the hospital for evaluation of right flank pain patient did have a CT with evidence of calculus in the bladder and left renal cortical mass. On today's evaluation that is 10/22/2024, the patient did have a low-grade fever of 99.9 F at 2 AM and the patient has been afebrile since then, the patient is on room air and breathing comfortably, the Pt denies having any chest pain or cough, the patient denies having any abdominal pain no vomiting. Patient white count 7.6 today, creatinine 0.61 urine cultures pending blood culture with staph epi Objective - Vital Signs Vital signs: Vital Signs Temp 98.9 F 10/22/24 07:29 Pulse 75 10/22/24 07:29 Resp 16 10/22/24 07:29 BP 102/70 10/22/24 07:59 Pulse Ox 98 10/22/24 07:29 FiO2 Intake & Output 10/21/24 10/22/24 10/22/24 18:59 06:59 18:59 Intake Total 900 Output Total 2350 Balance -2350 900 Weight 81.647 kg Intake: Intake, IV Titration 900 Amount Piperacillin-Tazobactam 3 200 .375 gm In Sodium Chloride 0.9% 100 ml @ 200 mls/hr IVPB Q8H [facility] Rx#:[id number] Sodium Chloride 0.9% 1, 700 000 ml @ 75 mls/hr IV . [id number] [facility] Rx#:[id number] Output: Urine 2350 Other: Voiding Method Ileal Conduit (Right) Ileal Conduit (Right) Indwelling Catheter - Exam GENERAL DESCRIPTION: Middle-age male lying in bed in no distress RESPIRATORY SYSTEM: Unlabored breathing , decreased breath sounds at bases HEART: S1 S2 regular rate and rhythm , ABDOMEN: Soft , no tenderness - Labs CBC & Chem 7: 10/22/24 10:13 10/22/24 10:13 Labs: Abnormal Lab Results - Last 24 Hours (Table) 10/21/24 10/22/24 10/22/24 Range/Units 14:40 10:13 10:13 RBC 4.09 L (4.40-5.60) 10*6/uL Hgb 10.6 L (13.0-17.0) g/dL Hct 34.1 L (39.6-50.0) % MCH 25.9 L (27.0-32.0) pg MCHC 31.1 L (32.0-37.0) g/dL RDW 15.5 H (11.5-14.5) % Sodium 136 L (137-145) mmol/L Creatinine 0.61 L (0.66-1.25) mg/dL Glucose 107 H (74-99) mg/dL Calcium 8.1 L (8.4-10.2) mg/dL Prealbumin 12.2 L (18.0-42.0) mg/dL Microbiology - Last 24 Hours (Table) 10/20/24 16:15 Urine Culture - Preliminary Urine,Clean Catch 10/20/24 19:10 Blood Culture Gram Stain - Preliminary Blood Blood Culture - Preliminary Molecular ID Assessment and Plan (1) Pyelonephritis Current Visit: Yes Status: Acute Code(s): N12 - TUBULO-INTERSTITIAL NEPHRITIS, NOT SPCF ACUTE OR CHRONIC SNOMED Code(s): 71050959 (2) Allergy to multiple antibiotics Current Visit: No Status: Acute Code(s): Z88.1 - ALLERGY STATUS TO OTHER ANTIBIOTIC AGENTS SNOMED Code(s): 980414205 Plan: 1patient presented to hospital with right flank pain did have hematuria significantly positive UA and this patient did have abnormal CT abdominal pelvis which shows evidence of stone in the bladder and left renal cortical mass patient did have history of recurrent UTI however last urine culture did shows Klebsiella that was sensitive to Zosyn that ESBL. 2patient with multiple antibiotic ALLERGIES that would limit the number of antibiotic safe to use, there is a amoxicillin allergy listed however he has t olerated Zosyn without any problem clinically doubt true penicillin allergy 3positive blood culture staph epi more likely skin contamination 4will treat with Zosyn while waiting for the culture to finalize Dictation was produced using [employer] dictation software. please excuse any grammatical, word or spelling errors. Time with Patient: Less than 30
[2024-10-23] MEDS: PANTOPRAZOLE 40 MG TABLET PO SCH (06:59)
[2024-10-23] MEDS: PETROLAT,WHITE/LAN/8-HYDROXYQU 227 GM OINT TOPICAL SCH (08:43)
--- NOTE | 2024-10-23 12:44 | P.PN ---
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 difficile, ESBL, MRSA, hypertension, chronic renal failure, DVT-anticoagulated on Eliquis, FOOD SAM[employer]ER shunt-which he states has been redirected into his heart in 2020, urostomy, colostomy , kidney stones ,depression, morbid obesity, presented to the ER with right flank pain increasing in severity since Monday accompanied by blood in urine and chills. Denies nausea, vomiting or diarrhea. Denies abdominal pain. denies fevers. Denies chest pain, palpitations or shortness of breath. Denies lightheadedness dizziness or focal deficits. Afebrile, normal WBC, hemoglobin 12.7, platelets 300. Electrolytes within normal limits, bicarb 23, BUN 13, creatinine 0.55, GFR greater than 90 lactic acid 0.7, alk phos 138. UA reported 2+ protein, large blood, positive nitrates, large leukocyte esterase, greater than 182 urine RBCs, urine WBCs 140, moderate bacteria and many urine mucus. Abdomen/pelvis CT reported no evidence for obstructive uropathy or renal calculus, appendix not visualized -no evidence for right-sided acute process to explain patient's pain, left renal fat-containing mass-not significantly changed from prior, chronic vasculitis-not significantly changed from prior, no organizing fluid collections, possible bladder stones near prostatic urethra not significantly changed from prior. 10/22/2024 evaluated by infectious disease, recommendations noted. Continues on Zosyn. Blood cultures reporting molecular ID. Urine culture in progress .Tmax 99.9, WBC 7.63, hemoglobin 10.6, platelets 277, sodium 136, potassium 4.1, bicarb 23, BUN 10, creatinine 0.61. Blood sugars controlled. Prealbumin 12.2. Continues on wound care as per wound care team. During exam patient is not itching,non-diaphoretic, appears comfortable, calm, conversing. Asking for an additional Dilaudid. Pain management team consulted, whom he has a pain contract with outpatient. 10/23/2024 maintained on Zosyn as per ID, cultures finalizing. Afebrile. Denies nausea, vomiting. Denies abdominal or flank pain. Denies chest pain, palpitations or shortness of breath. Maintaining O2 sats in the mid to high 90s on room air. Pain controlled with [place] for breakthrough pain at 2300 on 10/22/2024. Objective - Vital Signs Vital signs: Vital Signs Temp 98.2 F 10/23/24 06:56 Pulse 75 10/23/24 06:56 Resp 16 10/23/24 06:56 BP 106/69 10/23/24 06:56 Pulse Ox 95 10/23/24 06:56 FiO2 Intake & Output 10/22/24 10/23/24 10/23/24 18:59 06:59 18:59 Output Total 1700 350 Balance -1700 -350 Output: Urine 1700 350 Other: Voiding Method Indwelling Catheter Indwelling Catheter - Exam PHYSICAL EXAM: VITAL SIGNS: [Reviewed] GENERAL:Alert and oriented x 3, flat affect, 39year-old gentleman with spina bifida ,sitting up in bed, no acute distress. HEENT: Conjunctivae normal. eyes normal. MMM. NECK: Supple, no JVD. CARDIOVASCULAR: S1, S2 regular. No murmur RESPIRATION: Kyphosis .unlabored, equal air entry .breath sounds diminished in the bases. ABDOMEN: Soft, nontender . No guarding.Positive bowel sounds. LEGS: Bilateral lower legs erythema, pink, no drainage. NERVOUS SYSTEM: Cranial N 2-12 grossly normal.No focal deficits. Skin: Chronic stage IV left ischium , stage IV sacrum, pressure ulcer right is chium, left and right lower extremities' chronic nonpressure ulcers, refer to wound care team documentation for specific sizing. Microbiology 10/22/24 01:30 Buttock Gram Stain - Preliminary 10/22/24 01:30 Buttock Wound Culture - Preliminary Klebsiella Pneum subsp ozaenae Gram Neg Bacilli 10/20/24 16:15 Urine,Clean Catch Urine Culture - Final 10/20/24 19:10 Blood Blood Culture Gram Stain - Preliminary 10/20/24 19:10 Blood Blood Culture - Preliminary Staphylococcus epidermidis Molecular ID - Labs CBC & Chem 7: 10/22/24 10:13 10/22/24 10:13 Labs: Microbiology - Last 24 Hours (Table) 10/22/24 01:30 Gram Stain - Preliminary Buttock Wound Culture - Preliminary Klebsiella Pneum subsp ozaenae Gram Neg Bacilli 10/20/24 16:15 Urine Culture - Final Urine,Clean Catch 10/20/24 19:10 Blood Culture Gram Stain - Preliminary Blood Blood Culture - Preliminary Staphylococcus epidermidis Molecular ID Assessment and Plan Assessment: Acute pyelonephritis, UA reporting positive nitrates, large blood, large leukocytes, moderate bacteria, accompanied by right flank pain. CT reporting possible bladder stone , left renal cortical mass unchanged from prior.positive blood culture staph epi more likely skin contamination as per ID. Chronic osteomyelitis with chronic pressure ulcers;Stage IV left ischium , stage IV sacrum, pressure ulcer right ischium, left and right lower extremities' chronic nonpressure ulcers, follows with [facility] wound care clinic. Wound cultures reporting Klebsiella pneum subsp ozaenae, gram-negative bacilli History of irregular fat-containing mass arising from the left kidney measuring up to 7.3 cm, possibly related to posttreatment, possible angiomyolipoma, outpatient urology follow-up recommended. Spina bifida History of FOOD SAMPLER shunt History of MDRO infections including C. difficile, ESBL, MRSA Hypertension chronic renal failure stage 1 history of DVT, anticoagulated on Eliquis Morbid obesity, BMI 33 Urostomy Depression Hypoalbuminemia Pain contract Plan: Continue on current medication regimen ,monitoring and symptomatic treatment. Maintained on antibiotics as per ID. Discharge planning in progress pending finalized wound cultures, DC recommendations and clearance per infectious disease. Increase protein intake; prealbumin 12.2. Local wound care as per wound care team. The impression and plan of care has been dictated as directed. : I performed a history and examination of this patient, discussed the same with the dictator. I agree with the dictator's note ,documented as a scribe. Any additional findings or plans will be noted.
--- NOTE | 2024-10-23 12:53 | P.PN ---
Subjective Progress Note Date: 10/23/24 Principal diagnosis: Reason for follow-up is UTI/pyelonephritis Patient is a 39-year-old male with a past medical history significant for spina bifida cervical stenosis hypertension reflux and DVT previous history of C. difficile did have urostomy as well as a colostomy presenting to the hospital for evaluation of right flank pain patient did have a CT with evidence of calculus in the bladder and left renal cortical mass. On today's evaluation that is 10/23/2024, Patient is afebrile patient is currently on room air and denies having any shortness of breath, the patient denies any chest pain or cough, the patient denies any nausea vomiting did not have any abdominal pain and no diarrhea. Patient white count is 7.63 as of yesterday blood culture with staph epi but the culture with Klebsiella urine culture negative Objective - Vital Signs Vital signs: Vital Signs Temp 98.2 F 10/23/24 06:56 Pulse 75 10/23/24 06:56 Resp 16 10/23/24 06:56 BP 106/69 10/23/24 06:56 Pulse Ox 95 10/23/24 06:56 FiO2 Intake & Output 10/22/24 10/23/24 10/23/24 18:59 06:59 18:59 Output Total 1700 350 Balance -1700 -350 Output: Urine 1700 350 Other: Voiding Method Indwelling Catheter Indwelling Catheter - Exam GENERAL DESCRIPTION: Middle-age male lying in bed in no distress RESPIRATORY SYSTEM: Unlabored breathing , decreased breath sounds at bases HEART: S1 S2 regular rate and rhythm , ABDOMEN: Soft , no tenderness - Labs CBC & Chem 7: 10/22/24 10:13 10/22/24 10:13 Labs: Microbiology - Last 24 Hours (Table) 10/22/24 01:30 Gram Stain - Preliminary Buttock Wound Culture - Preliminary Klebsiella Pneum subsp ozaenae Gram Neg Bacilli 10/20/24 16:15 Urine Culture - Final Urine,Clean Catch 10/20/24 19:10 Blood Culture Gram Stain - Preliminary Blood Blood Culture - Preliminary Staphylococcus epidermidis Molecular ID Assessment and Plan (1) Pyelonephritis Current Visit: Yes Status: Acute Code(s): N12 - TUBULO-INTERSTITIAL NEPHRITIS, NOT SPCF ACUTE OR CHRONIC SNOMED Code(s): 56672640 (2) Allergy to multiple antibiotics Current Visit: No Status: Acute Code(s): Z88.1 - ALLERGY STATUS TO OTHER ANTIBIOTIC AGENTS SNOMED Code(s): 428237762 Plan: 1patient presented to hospital with right flank pain did have hematuria significantly positive UA and this patient did have abnormal CT abdominal pelvis which shows evidence of stone in the bladder and left renal cortical mass patient did have history of recurrent UTI however last urine culture did shows Klebsiella that was sensitive to Zosyn that ESBL. 2patient with multiple antibiotic ALLERGIES that would limit the number of antibiotic safe to use, there is a amoxicillin allergy listed however he has tolerated Zosyn without any problem clinically doubt true penicillin allergy 3positive blood culture staph epi more likely skin contamination, giving him and the patient did have a port we will repeat a blood culture to make sure no evidence of persistent bacteremia 4patient did have a gluteal culture growing Klebsiella urine is negative we will repeat a UA for now continue with Zosyn Dictation was produced using [employer] dictation software. please excuse any grammatical, word or spelling errors. Time with Patient: Less than 30
[2024-10-23 20:42] LABS: Appearance,Urine Clear (Clear); Bacteria,Urine Occasional /hpf; Bilirubin,Urine Negative (Negative); Blood,Urine Moderate (Negative); Color,Urine Colorless; Glucose,Urine (UA) Negative (Negative); Ketones,Urine Negative (Negative); Leukocyte Esterase,Urine Large (Negative); Mucus,Urine Rare /hpf; Nitrite,Urine Negative (Negative); PH, Urine 6.5 (5.0-8.0); Protein,Urine Negative (Negative); RBC,Urine 66 /hpf (0-5); Specific Gravity,Urine 1.013 (1.001-1.035); Urobilinogen,Urine <2.0 mg/dL (<2.0); WBC,Urine 5 /hpf (0-5)
[2024-10-24 08:17] LABS: Blood Urea Nitrogen 9.3 mg/dL (9.0-27.0); Calcium 8.1 mg/dL (8.7-10.3); Carbon Dioxide 20.5 mmol/L (21.6-31.8); Chloride 106 mmol/L (96-109); Glucose 109 mg/dL (70-110); Potassium 3.7 mmol/L (3.5-5.5); Sodium 136 mmol/L (135-145)
[2024-10-24 08:27] LABS: Basophils # (A) 0.04 X 10*3/uL (0.00-0.10); Basophils % (A) 0.5 %; Eosinophils # (A) 0.25 X 10*3/uL (0.04-0.35); Eosinophils % (A) 2.9 %; HCT 36.3 % (39.6-50.0); HGB 10.9 g/dL (13.0-17.0); Lymphocytes # (A) 1.47 X 10*3/uL (0.90-5.00); MCH 25.4 pg (27.0-32.0); MCV 84.6 FL (80.0-97.0); Mean Platelet Volume 9.4 FL (9.5-12.2); Monocytes # (A) 0.69 X 10*3/uL (0.20-1.00); NRBC Per 100 WBC 0 X 10*3/uL (0.00-0.01); Neutrophils # (A) 6.17 X 10*3/uL (1.80-7.70); Neutrophils % (A) 71.3 %; Platelet Count 261 X 10*3/uL (140-440); RBC 4.29 X 10*6/uL (4.40-5.60); RDW 15.4 % (11.5-14.5); WBC 8.65 X 10*3/uL (4.50-10.00)
--- NOTE | 2024-10-24 10:55 | P.DS ---
Providers Date of admission: 10/23/24 08:39 Expected date of discharge: 10/24/24 Attending physician: Mariano Slaughter Consults: 10/20/24 18:46 Consult Physician Routine Consulting Provider: Robert Corcoran Consult Reason/Comments: UTI, urostomy Do you want consulting provider notified?: Yes, Notify in am 10/21/24 13:57 Consult Physician Routine Consulting Provider: Sharonda Patel Consult Reason/Comments: recurrent UTI,HX ESBL, Multiple antibx allergies. Do you want consulting provider notified?: Yes 10/22/24 12:12 Consult Physician Routine Consulting Provider: Maurisio Smith Consult Reason/Comments: Pain management-patient has a pain management contract with [facility] Do you want consulting provider notified?: Yes Primary care physician: Akash Hodges [facility] Course: Final Diagnoses: Acute pyelonephritis, UA reporting positive nitrates, large blood, large leukocytes, moderate bacteria, accompanied by right flank pain. CT reporting possible bladder stone , left renal cortical mass unchanged from prior.positive blood culture staph epi more likely skin contamination as per ID. Chronic osteomyelitis with chronic pressure ulcers;Stage IV left ischium , stage IV sacrum, pressure ulcer right ischium, left and right lower extremities' chronic nonpressure ulcers, follows with [facility] wound care clinic. Wound cultures reporting Klebsiella pneum subsp ozaenae, gram-negative bacilli History of irregular fat-containing mass arising from the left kidney measuring up to 7.3 cm, possibly related to posttreatment, possible angiomyolipoma, outpatient urology follow-up recommended. 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 difficile, ESBL, MRSA, hypertension, chronic renal failure, DVT-anticoagulated on Eliquis, S[employer]IOR US[employer]CHIT[employer] shunt-which he states has been redirected into his heart in 2020, urostomy, colostomy , kidney stones ,depression, morbid obesity, presented to the ER with right flank pain increasing in severity since Monday accompanied by blood in urine and chills. Denies nausea, vomiting or diarrhea. Denies abdominal pain. denies fevers. Denies chest pain, palpitations or shortness of breath. Denies lightheadedness dizziness or focal deficits. Afebrile, normal WBC, hemoglobin 12.7, platelets 300. Electrolytes within normal limits, bicarb 23, BUN 13, creatinine 0.55, GFR greater than 90 lactic acid 0.7, alk phos 138. UA reported 2+ protein, large blood, positive nitrates, large leukocyte esterase, greater than 182 urine RBCs, urine WBCs 140, moderate bacteria and many urine mucus. Abdomen/pelvis CT reported no evidence for obstructive uropathy or renal calculus, appendix not visualized -no evidence for right-sided acute process to explain patient's pain, left renal fat-containing mass-not significantly changed from prior, chronic vasculitis-not significantly changed from prior, no organizing fluid collections, possible bladder stones near prostatic urethra not significantly changed from prior. 10/22/2024 evaluated by infectious disease, recommendations noted. Continues on Zosyn. Blood cultures reporting molecular ID. Urine culture in progress .Tmax 99.9, WBC 7.63, hemoglobin 10.6, platelets 277, sodium 136, potassium 4.1, bicarb 23, BUN 10, creatinine 0.61. Blood sugars controlled. Prealbumin 12.2. Continues on wound care as per wound care team. During exam patient is not itching,non-diaphoretic, appears comfortable, calm, conversing. Asking for an additional Dilaudid. Pain management team consulted, whom he has a pain contract with outpatient. 10/23/2024 maintained on Zosyn as per ID, cultures finalizing. Afebrile. Denies nausea, vomiting. Denies abdominal or flank pain. Denies chest pain, palpitations or shortness of breath. Maintaining O2 sats in the mid to high 90s on room air. Pain controlled with [place] for breakthrough pain at 2300 on 10/22/2024. Maintained on antibiotics as per ID. Discharge planning in progress pending finalized wound cultures, DC recommendations and clearance per infectious disease. Increase protein intake; prealbumin 12.2. Local wound care as per wound care team. Microbiology 10/22/24 01:30 Buttock Gram Stain - Preliminary 10/22/24 01:30 Buttock Wound Culture - Preliminary Klebsiella Pneum subsp ozaenae Gram Neg Bacilli Stenotrophomonas maltophilia 10/20/24 19:10 Blood Blood Culture Gram Stain - Final 10/20/24 19:10 Blood Blood Culture - Final Staphylococcus epidermidis Staphylococcus epidermidis#2 Molecular ID 10/20/24 16:15 Urine,Clean Catch Urine Culture - Final Pain controlled. Denies flank or abdominal pain. denies chest pain, palpitations or shortness of breath. Denies lightheadedness, dizziness or focal deficits. Patient will be discharged home with home care in a stable condition with guarded prognosis today pending finalized wound cultures ,final DC recommendations/antibiotics and clearance as per ID. The impression and plan of care has been dictated as directed. : I performed a history and examination of this patient, discussed the same with the dictator. I agree with the dictator's note ,documented as a scribe. Any additional findings or plans will be noted. Patient Condition at Discharge: Stable Plan - Discharge Summary Discharge Rx Participant: Yes New Discharge Prescriptions: New Ciprofloxacin HCl [Cipro] 500 mg PO BID 7 Days #14 tab Continue traZODone HCL [Desyrel] 50 mg PO HS PRN PRN Reason: Insomnia Apixaban [Eliquis] 5 mg PO BID Tamsulosin [Flomax] 0.4 mg PO DAILY Metoclopramide HCl [Reglan] 10 mg PO AC-BID Metoprolol Succinate (ER) [Toprol XL] 25 mg PO DAILY Loratadine [Claritin] 10 mg PO DAILY Triamcinolone 0.025% Cream [Kenalog 0.025% Cream] 1 applic TOPICAL BID buPROPion XL [Wellbutrin XL] 150 mg PO HS Pantoprazole Sodium 40 mg PO AC-BRKFST Folic Acid 0.8 mg PO DAILY HYDROmorphone HCL 2 mg PO TID PRN 30 Days #90 tab PRN Reason: Pain Discharge Medication List Apixaban [Eliquis] 5 mg PO BID 07/17/24 [History] Metoclopramide HCl [Reglan] 10 mg PO AC-BID 07/17/24 [History] Pantoprazole Sodium 40 mg PO AC-BRKFST 07/17/24 [History] Tamsulosin [Flomax] 0.4 mg PO DAILY 07/17/24 [History] buPROPion XL [Wellbutrin XL] 150 mg PO HS 07/17/24 [History] traZODone HCL [Desyrel] 50 mg PO HS PRN 07/17/24 [History] Metoprolol Succinate (ER) [Toprol XL] 25 mg PO DAILY 09/03/24 [History] Folic Acid 0.8 mg PO DAILY 09/30/24 [History] Loratadine [Claritin] 10 mg PO DAILY 09/30/24 [History] Triamcinolone 0.025% Cream [Kenalog 0.025% Cream] 1 applic TOPICAL BID 09/30/24 [History] HYDROmorphone HCL 2 mg PO TID PRN 30 Days #90 tab 10/23/24 [Rx] Ciprofloxacin HCl [Cipro] 500 mg PO BID 7 Days #14 tab 10/24/24 [Rx] Follow up Appointment(s)/Referral(s): Robert Corcoran MD [STAFF PHYSICIAN] - 10/31/24 10:40 am [facility] [NON-STAFF] - 11/05/24 1:30 pm [facility] [NON-STAFF] - As Needed Akash Hodges MD [Primary Care Provider] - 10/29/24 11:30 am Activity/Diet/Wound Care/Special Instructions: Continue wound care as ordered per wound care team Patient has a pain contract with [facility] pain management services, recommend follow-up
--- NOTE | 2024-10-24 15:35 | P.PN ---
Subjective Progress Note Date: 10/24/24 Principal diagnosis: Reason for follow-up is UTI/pyelonephritis Patient is a 39-year-old male with a past medical history significant for spina bifida cervical stenosis hypertension reflux and DVT previous history of C. difficile did have urostomy as well as a colostomy presenting to the hospital for evaluation of right flank pain patient did have a CT with evidence of calculus in the bladder and left renal cortical mass. On today's evaluation that is 10/24/2024, patient has been afebrile, patient is breathing comfortably and is currently on room air, patient denies having any chest pain and cough, patient denies nausea vomiting or diarrhea and no abdominal pain. Patient did have white count of 8.65 creatinine 0.6 repeat UA positive cultures pending patient did have multiple bacteria growing from the gluteal wound obtained by the wound care Objective - Vital Signs Vital signs: Vital Signs Temp 98.4 F 10/24/24 07:16 Pulse 69 10/24/24 07:16 Resp 17 10/24/24 07:16 BP 105/68 10/24/24 07:16 Pulse Ox 98 10/24/24 07:16 FiO2 Intake & Output 10/23/24 10/24/24 10/24/24 18:59 06:59 18:59 Intake Total 4040 Output Total 2650 975 Balance 1390 -975 Intake: Oral 4040 Output: Urine 2650 975 Other: Voiding Method Ileal Conduit (Right) Ileal Conduit (Right) Ileal Conduit (Right) - Exam GENERAL DESCRIPTION: Middle-age male lying in bed in no distress RESPIRATORY SYSTEM: Unlabored breathing , decreased breath sounds at bases HEART: S1 S2 regular rate and rhythm , ABDOMEN: Soft , no tenderness Patient did have multiple pressure ulcer to the sacral and gluteal area with some slough tissue I was not able to palpate any bone - Labs CBC & Chem 7: 10/24/24 05:02 10/24/24 05:02 Labs: Abnormal Lab Results - Last 24 Hours (Table) 10/23/24 10/24/24 10/24/24 Range/Units 20:25 05:02 05:02 RBC 4.29 L (4.40-5.60) X 10*6/uL Hgb 10.9 L (13.0-17.0) g/dL Hct 36.3 L (39.6-50.0) % MCH 25.4 L (27.0-32.0) pg MCHC 30.0 L (32.0-37.0) g/dL RDW 15.4 H (11.5-14.5) % MPV 9.4 L (9.5-12.2) FL Carbon Dioxide 20.5 L (21.6-31.8) mmol/L Calcium 8.1 L (8.7-10.3) mg/dL Urine Blood Moderate H (Negative) Ur Leukocyte Esterase Large H (Negative) Urine RBC 66 H (0-5) /hpf Urine Bacteria Occasional H (None) /hpf Urine Mucus Rare H (None) /hpf Microbiology - Last 24 Hours (Table) 10/22/24 01:30 Gram Stain - Preliminary Buttock Wound Culture - Preliminary Klebsiella Pneum subsp ozaenae Gram Neg Bacilli Stenotrophomonas maltophilia 10/20/24 19:10 Blood Culture Gram Stain - Final Blood Blood Culture - Final Staphylococcus epidermidis Staphylococcus epidermidis#2 Molecular ID Assessment and Plan (1) Pyelonephritis Current Visit: Yes Status: Acute Code(s): N12 - TUBULO-INTERSTITIAL NEPHRITIS, NOT SPCF ACUTE OR CHRONIC SNOMED Code(s): 35230048 (2) Allergy to multiple antibiotics Current Visit: No Status: Acute Code(s): Z88.1 - ALLERGY STATUS TO OTHER ANTIBIOTIC AGENTS SNOMED Code(s): 718081359 Plan: 1patient presented to hospital with right flank pain did have hematuria significantly positive UA and this patient did have abnormal CT abdominal pelvis which shows evidence of stone in the bladder and left renal cortical mass patient did have history of recurrent UTI however last urine culture did shows Klebsiella that was sensitive to Zosyn that ESBL. 2patient with multiple antibiotic ALLERGIES that would limit the number of antibiotic safe to use, there is a amoxicillin allergy listed however he has tolerated Zosyn without any problem clinically doubt true penicillin allergy 3positive blood culture staph epi more likely skin contamination, giving him and the patient did have a port, blood culture to be results will be followed 4patient did have a gluteal culture growing Klebsiella and 2 different anaerobes we will wait for the sensitivity finalize determine discharge antibiotics for now continue with Zosyn discussed with the [facility] for admitting team Dictation was produced using [employer] dictation software. please excuse any grammatical, word or spelling errors. Time with Patient: Less than 30
[2024-10-25] MEDS: traZODone HCL 50 MG TAB PO PRN (05:23)
[2024-10-25 07:53] VITALS: BP 127/77; PULSE 70; RESP 18; TEMP 98.2
--- NOTE | 2024-10-25 15:20 | P.PN ---
Subjective Progress Note Date: 10/25/24 Principal diagnosis: Reason for follow-up is UTI/pyelonephritis Patient is a 39-year-old male with a past medical history significant for spina bifida cervical stenosis hypertension reflux and DVT previous history of C. difficile did have urostomy as well as a colostomy presenting to the hospital for evaluation of right flank pain patient did have a CT with evidence of calculus in the bladder and left renal cortical mass. On today's evaluation that is 10/25/2024, Patient is afebrile this morning patient denies having any chest pain shortness of breath or cough, the patient is currently on room air, patient denies any abdominal pain no diarrhea no nausea no vomiting. Patient did not have any lab draw today, wound culture with Klebsiella stenotrophomonas and Acinetobacter Objective - Vital Signs Vital signs: Vital Signs Temp 98.2 F 10/25/24 07:29 Pulse 70 10/25/24 07:29 Resp 18 10/25/24 07:29 BP 127/77 10/25/24 07:29 Pulse Ox 99 10/25/24 07:29 FiO2 Intake & Output 10/24/24 10/25/24 10/25/24 18:59 06:59 18:59 Intake Total 780 Output Total 1375 1200 Balance -1375 -420 Intake: Oral 780 Output: Urine 1375 1200 Other: Voiding Method Ileal Conduit (Right) Ileal Conduit (Right) Ileal Conduit (Right) # Bowel Movements 1 - Exam GENERAL DESCRIPTION: Middle-age male lying in bed in no distress RESPIRATORY SYSTEM: Unlabored breathing , decreased breath sounds at bases HEART: S1 S2 regular rate and rhythm , ABDOMEN: Soft , no tenderness - Labs CBC & Chem 7: 10/24/24 05:02 10/24/24 05:02 Labs: Microbiology - Last 24 Hours (Table) 10/22/24 01:30 Gram Stain - Final Buttock Wound Culture - Final Klebsiella Pneum subsp ozaenae Acinetobacter cory/haemol Stenotrophomonas maltophilia 10/23/24 13:04 Blood Culture - Preliminary Blood 10/22/24 01:30 Anaerobic Culture - Preliminary Buttock Elke glabrata Assessment and Plan (1) Pyelonephritis Status: Acute Code(s): N12 - TUBULO-INTERSTITIAL NEPHRITIS, NOT SPCF ACUTE OR CHRONIC SNOMED Code(s): 52029759 (2) Allergy to multiple antibiotics Status: Acute Code(s): Z88.1 - ALLERGY STATUS TO OTHER ANTIBIOTIC AGENTS SN OMED Code(s): 408126041 (3) Wound infection Status: Acute Code(s): T14.8XXA - OTHER INJURY OF UNSPECIFIED BODY REGION, INITIAL ENCOUNTER; L08.9 - LOCAL INFECTION OF THE SKIN AND SUBCUTANEOUS TISSUE, UNSP SNOMED Code(s): 15501179 Plan: 1patient presented to hospital with right flank pain did have hematuria significantly positive UA and this patient did have abnormal CT abdominal pelvis which shows evidence of stone in the bladder and left renal cortical mass patient did have history of recurrent UTI however last urine culture did shows Klebsiella that was sensitive to Zosyn that ESBL. 2patient with multiple antibiotic ALLERGIES that would limit the number of antibiotic safe to use, there is a amoxicillin allergy listed however he has tolerated Zosyn without any problem clinically doubt true penicillin allergy 3positive blood culture staph epi more likely skin contamination, giving him and the patient did have a port, blood culture has been repeated which are negative so far 4patient did have a gluteal culture growing Klebsiella stenotrophomonas both of them are sensitive to Levaquin as well as Acinetobacter questionably contaminant we will recommend course of oral Levaquin on discharge prescription have been sent to the pharmacy and discussed with DRYWALL APPLICATOR for admitting team Dictation was produced using [employer] dictation software. please excuse any grammatical, word or spelling errors. Time with Patient: Less than 30
== END 2024-10-25 15:07 | disposition home health service (06) | DRG 689 ==
LOC: EC 15:32 → 4SSUR 18:49 → OBSVTOIN 10-23 08:39
PROVIDERS: ADMIT Family Medicine; ATTEND Family Medicine
DX: N10 Acute pyelonephritis (principal); L89.154 Pressure ulcer of sacral region, stage 4; L89.214 Pressure ulcer of right hip, stage 4; L89.224 Pressure ulcer of left hip, stage 4; I13.0 Hypertensive heart and chronic kidney disease with heart failure and stage 1 through stage 4 chronic kidney disease, or unspecified chronic kidney disease; M86.60 Other chronic osteomyelitis, unspecified site; L97.811 Non-pressure chronic ulcer of other part of right lower leg limited to breakdown of skin; E88.09 Other disorders of plasma-protein metabolism, not elsewhere classified; Z68.33 Body mass index [BMI] 33.0-33.9, adult; F32.A Depression, unspecified; L97.821 Non-pressure chronic ulcer of other part of left lower leg limited to breakdown of skin; Z16.24 Resistance to multiple antibiotics; I50.9 Heart failure, unspecified; Q05.5 Cervical spina bifida without hydrocephalus; E66.01 Morbid (severe) obesity due to excess calories; Z93.3 Colostomy status; Z93.6 Other artificial openings of urinary tract status; K21.9 Gastro-esophageal reflux disease without esophagitis; M48.02 Spinal stenosis, cervical region; R31.9 Hematuria, unspecified; M41.9 Scoliosis, unspecified; N18.1 Chronic kidney disease, stage 1; N21.0 Calculus in bladder; Z79.01 Long term (current) use of anticoagulants; Z79.899 Other long term (current) drug therapy; Z86.718 Personal history of other venous thrombosis and embolism; Z87.440 Personal history of urinary (tract) infections; Z87.442 Personal history of urinary calculi; Z88.1 Allergy status to other antibiotic agents; Z98.1 Arthrodesis status; Z98.2 Presence of cerebrospinal fluid drainage device; Z88.5 Allergy status to narcotic agent; Z88.0 Allergy status to penicillin; Z86.14 Personal history of Methicillin resistant Staphylococcus aureus infection
CPT/HCPCS: 36415; 74176; 80048; 80053; 81001; 83605; 84134; 85025; 85027; 87040; 87070; 87075; 87077; 87086; 87186; 87205; 96361; 96374; 96375; 96376; 99285

== ENCOUNTER → 2024-11-14 | Outpatient (CLI) | payer MEDICARE, OTHER ==
[2024-11-14 13:46] VITALS: RESP 16
[2024-11-14 13:53] VITALS: BP 119/61; PULSE 74; TEMP 96.9
--- NOTE | 2024-11-18 14:29 | P.PAINPG ---
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 Pt states pain level is provoked at 6 /10 in intensity, constant, localized in the lumbar spine, predominantly axial, throbbing in character w occasional shooting pain towards the LEs. Pain is provoked by weight bearing. Pain is alleviated by PT x 6 wks in 2022, physician guided home stretches daily since 2005, medications, use of a wheelchair for ambulatory assistance, repositioning and rest . Oswestry axial pain score at 30. Interventional procedures include Spinal Bifida w Fusion Medications include Dilaudid 2mg #90 REVIEW OF ORGAN SYSTEMS: CONSTITUTIONAL: No fevers or chills. No recent weight loss. NEUROLOGICAL: + numbness and tingling along the distal extremities. No seizure disorders or headaches. MUSCULOSKELETAL: + pain PSYCHIATRIC: Denies current depression or suicidal thoughts. Physical Examinations : Constitutional : Cooperative , not in acute distress . Neurologic : Cranial nerve II to XII intact. No focal neurological deficits. Psychiatric : alert & oriented x 3. Matching mood & appropriate affect. Judgment & insight intact. Musculoskeletal : Cervical Spine Motor strength in the deltoid and biceps: Normal right side. Normal Left side Motor strength biceps and the wrist extensors: Normal right side . Normal left side Motor strength in the triceps muscle: Normal right side. Normal left side Deep tendon reflexes: Normal at the biceps. Normal at Brachioradialis. Normal at triceps Vertebral body tenderness to deep palpation over Cervical facet loading test: positive bilaterally Spurling test: positive bilaterally Neck distraction test: positive bi laterally Genet sign: positive bilaterally Lumbar spine +Incisional scars Motor strength lower extremities ,thigh and legs 5/5 Right side , 5/5 Left side Deep tendon reflexes : Normal Knee Jerk. Normal Ankle Jerk Vertebral body tenderness over Velasquez Test positive Lumbar facet Loading Test: positive Right / positive Left Range of motion of the lumbar spine Flexion 30 degrees, extension 10 degrees Straight Leg Raise test: Left/ Right positive at degrees Fernando test: positive right / positive left. Severe tenderness over the Sacroiliac joint on the Right / Left sides Gaenslen test: positive bilaterally Seated flexion test: positive bilaterally. Sacral spine : Severe tenderness over the Sacroiliac joint: right side / left side Range of motion: Flexion of the lumbar spine <60 degrees Range of motion: Extension of the lumbar spine <20 degrees Gaenslen's Test positive Fernando test: positive right side / left side Thigh Thrust Test Sacral Thrust Test Assessment/ Plan : Spinal Fusion secondary to Spinal Bifida Recommendation of medication management. Opiate/ narcotic agreement signed 08/29/24. Dilaudid 2mg #90 w 1 RF. UDS at next visit. Use, side effects, adverse reactions, safe storage discussed. All questions answered. I have spent greater than 30 minutes on patient care today. Dr Smith was available by phone for the evaluation of this patient. The time was used to review the medical records including relevant urine studies and Prescription history (MAPs), review of the available imaging, evaluation and examination of the patient, coordination of care with the medical staff and if applicable referring physicians, as well as creation of the medical record - Pain Location Generalized Non-Pharmacological Interventions: Heat, Ice, Inactivity, Position/Reposition Pharmacological Interventions: PRN Medication, Scheduled Medication PQRS Narrative: Narcotic Agreement Date Signed 08/29/24 Blood Pressure 119/61 Pain Intensity [Generalized] 6 Scale Used Numeric (1 - 10) Hx Alcohol Use (MH) No Home Medications: Ambulatory Orders Metoclopramide HCl [Reglan] 10 mg PO AC-BID 07/17/24 Pantoprazole Sodium 40 mg PO AC-BRKFST 07/17/24 Tamsulosin [Flomax] 0.4 mg PO DAILY 07/17/24 buPROPion XL [Wellbutrin XL] 150 mg PO HS 07/17/24 traZODone HCL [Desyrel] 50 mg PO HS PRN 07/17/24 Metoprolol Succinate (ER) [Toprol XL] 25 mg PO DAILY 09/03/24 Folic Acid 0.8 mg PO DAILY 09/30/24 Loratadine [Claritin] 10 mg PO DAILY 09/30/24 Triamcinolone 0.025% Cream [Kenalog 0.025% Cream] 1 applic TOPICAL BID 09/30/24 Levofloxacin [Levaquin] 750 mg PO DAILY 28 Days #28 tab 10/25/24 Apixaban [Eliquis] 5 mg PO BID 11/07/24 HYDROmorphone HCL 2 mg PO TID PRN 30 Days #90 tab 11/14/24 HYDROmorphone [Dilaudid] 2 mg PO TID PRN 30 Days #90 tab 11/14/24 Controlled Substance Measures - Controlled Substance Measures Is patient prescribed a controlled substance at discharge?: Yes When asked, does pt state using other controlled substances?: No If prescribed controlled substance>3 days was MAPS reviewed?: Yes
== END ==
LOC: PNWHC3 13:37
PROVIDERS: ATTEND Specialist
DX: M43.26 Fusion of spine, lumbar region (principal); Z88.0 Allergy status to penicillin; Z88.2 Allergy status to sulfonamides; Z88.5 Allergy status to narcotic agent; Z91.041 Radiographic dye allergy status; Z91.040 Latex allergy status; Z88.1 Allergy status to other antibiotic agents; Z88.3 Allergy status to other anti-infective agents; Z88.8 Allergy status to other drugs, medicaments and biological substances
CPT/HCPCS: 80307; G0463; 99212

== ENCOUNTER → 2024-12-19 | Outpatient (CLI) | payer MEDICARE, OTHER ==
[~2024-12-19] MED LIST: SODIUM CHLORIDE 0.9% 250 ML in EMPTY BAG 1 BAG IV PRN; SODIUM CHLORIDE 0.9% 500 ML 500 ML in EMPTY BAG 1 BAG IV PRN
[2024-12-19 13:47] VITALS: BP 113/69; PULSE 81; RESP 16; TEMP 98
== END ==
LOC: PROCWHC3 13:13
PROVIDERS: ATTEND Internal Medicine Hematology & Oncology
DX: Z45.2 Encounter for adjustment and management of vascular access device (principal); I82.502 Chronic embolism and thrombosis of unspecified deep veins of left lower extremity; L97.921 Non-pressure chronic ulcer of unspecified part of left lower leg limited to breakdown of skin; L97.911 Non-pressure chronic ulcer of unspecified part of right lower leg limited to breakdown of skin; L89.154 Pressure ulcer of sacral region, stage 4; M86.38 Chronic multifocal osteomyelitis, other site; R53.81 Other malaise; G89.4 Chronic pain syndrome; F32.1 Major depressive disorder, single episode, moderate; Q05.6 Thoracic spina bifida without hydrocephalus; F11.90 Opioid use, unspecified, uncomplicated; Z99.3 Dependence on wheelchair; Z95.828 Presence of other vascular implants and grafts; Z98.890 Other specified postprocedural states; Z93.3 Colostomy status
CPT/HCPCS: 96523; J1642

== ENCOUNTER 2024-12-22 14:37 | Emergency (ER) | payer MEDICARE, OTHER ==
--- NOTE | 2024-12-22 15:33 | ED ---
General Adult HPI - General Chief complaint: Urogenital Stated complaint: UTI symptoms Time Seen by Provider: 12/22/24 15:13 Source: patient Mode of arrival: ambulatory Limitations: no limitations - History of Present Illness Initial comments: Patient is a 39-year-old male present to the emergency department with concerns for urinary tract infection. Patient has urostomy with frequent urinary tract infections. Patient states he has had dozens before with similar symptoms. Patient has noticed cloudy and bloody urine. Patient has some abdominal c ramping. Patient request pain and nausea medication. Patient does have history of spina bifida and is nonambulatory. - Related Data Home Medications Medication Instructions Recorded Confirmed Metoclopramide HCl [Reglan] 10 mg PO AC-BID 07/17/24 12/19/24 Pantoprazole Sodium 40 mg PO AC-BRKFST 07/17/24 12/19/24 Tamsulosin [Flomax] 0.4 mg PO DAILY 07/17/24 12/19/24 buPROPion XL [Wellbutrin XL] 150 mg PO HS 07/17/24 12/19/24 traZODone HCL [Desyrel] 50 mg PO HS PRN 07/17/24 12/19/24 Metoprolol Succinate (ER) [Toprol 25 mg PO DAILY 09/03/24 12/19/24 XL] Folic Acid 0.8 mg PO DAILY 09/30/24 12/19/24 Loratadine [Claritin] 10 mg PO DAILY 09/30/24 12/19/24 Triamcinolone 0.025% Cream 1 applic TOPICAL BID 09/30/24 12/19/24 [Kenalog 0.025% Cream] Apixaban [Eliquis] 5 mg PO BID 11/07/24 12/19/24 Previous Rx's Medication Instructions Recorded Levofloxacin [Levaquin] 750 mg PO DAILY 28 Days #28 tab 10/25/24 HYDROmorphone HCL 2 mg PO TID PRN 30 Days #90 tab 11/14/24 HYDROmorphone [Dilaudid] 2 mg PO TID PRN 30 Days #90 tab 11/14/24 Sulfamethox-Tmp 800-160Mg [Bactrim 2 each PO Q12HR #10 tab 12/22/24 DS 800-160 mg] Allergies Allergy/AdvReac Type Severity Reaction Status Date / Time amoxicillin Allergy Rash/Hives Verified 12/22/24 14:45 barium sulfate Allergy Dyspnea Verified 12/22/24 14:45 cefepime Allergy Rash/Hives Verified 12/22/24 14:45 ceftriaxone Allergy Rash/Hives Verified 12/22/24 14:45 fentanyl Allergy Rash/Hives Verified 12/22/24 14:45 Iodinated Contrast Media Allergy Dyspnea Verified 12/22/24 14:45 latex Allergy Rash/Hives Verified 12/22/24 14:45 morphine Allergy Anaphylaxis Verified 12/22/24 14:45 ondansetron [From Zofran] Allergy Rash/Hives Verified 12/22/24 14:45 prochlorperazine Allergy Rash/Hives Verified 12/22/24 14:45 [From Compazine] Review of Systems ROS Statement: Those systems with pertinent positive or pertinent negative responses have been documented in the HPI. ROS Other: All systems not noted in ROS Statement are negative. Constitutional: Denies: fever Eyes: Denies: eye pain ENT: Denies: ear pain Respiratory: Denies: dyspnea Cardiovascular: Denies: chest pain Gastrointestinal: Reports: as per HPI, nausea Genitourinary: Reports: hematuria Past Medical History Past Medical History: Heart Failure, Deep Vein Thrombosis (DVT), GERD/Reflux, Hypertension, Musculoskeletal Disorder, Neurologic Disorder, Renal Disease, Skin Disorder Additional Past Medical History / Comment(s): WOUND STAGE 4 CAITLYN AND MID BUTTOCKS. History of Any Multi-Drug Resistant Organisms: None Reported Date of last positivie culture/infection: 2020 MDRO Source:: WOUND Past Surgical History: Appendectomy, Back Surgery, Bladder Surgery, Bowel Resection, Cholecystectomy, Orthopedic Surgery, Plyoromyotomy, Ventriculoperitoneal Shunt Additional Past Surgical History / Comment(s): Urostomy,Colostomy, [place] shunt placed 2018, Lt rotator cuff repair, Infusaport LT chest, Spinal fusion at 7 years old Past Anesthesia/Blood Transfusion Reactions: No Reported Reaction Past Psychological History: Depression Smoking Status: Never smoker Past Alcohol Use History: None Reported Past Drug Use History: None Reported - Past Family History Mother Family Medical History: Diabetes Mellitus Additional Family Medical History / Comment(s): spine issues General Exam Limitations: no limitations General appearance: alert, in no apparent distress Head exam: Present: normocephalic Eye exam: Present: normal appearance Neck exam: Present: normal inspection Respiratory exam: Present: normal lung sounds bilaterally Cardiovascular Exam: Present: regular rate, normal rhythm GI/Abdominal exam: Present: soft, tenderness (Mild tenderness lower abdomen) Extremities exam: Present: other (Legs are atrophied) Neurological exam: Present: alert Psychiatric exam: Present: normal affect, normal mood Skin exam: Present: normal color Course Vital Signs 12/22/24 12/22/24 12/22/24 14:43 15:18 16:20 Temperature 98.1 F Pulse Rate 77 86 71 Respiratory 18 16 18 Rate Blood Pressure 113/72 114/88 120/72 O2 Sat by Pulse 99 98 100 Oximetry 12/22/24 12/22/24 17:47 18:21 Temperature Pulse Rate 74 63 Respiratory 16 18 Rate Blood Pressure 109/74 116/79 O2 Sat by Pulse 99 100 Oximetry Medical Decision Making - Medical Decision Making Was pt. sent in by a medical professional or institution (, PA, CUTTER INSPECTOR, urgent care, hospital, or correction...) When possible be specific @ -No Did you speak to anyone other than the patient for history (EMS, parent, family, police, friend...)? What history was obtained from this source @ -Mother is present and helps provide patient history of frequent urinary tract infections Did you review nursing and triage notes (agree or disagree)? Why? @ -I reviewed and agree with nursing and triage notes Were old charts reviewed (outside hosp., previous admission, EMS record, old EKG, old radiological studies, urgent care reports/EKG's, correction records)? Report findings @ -No old charts were reviewed Differential Diagnosis (chest pain, altered mental status, abdominal pain women, abdominal pain men, vaginal bleeding, weakness, fever, dyspnea, syncope, headache, dizziness, GI bleed, back pain, seizure, CVA, palpatations, mental health, musculoskeletal)? @ -Differential Abdominal Pain Men: Appendicitis, cholecystitis, diverticulosis, ischemic bowel, pancreatitis, hepatitis, UTI, gastroenteritis, AAA, incarcerated hernia, bowel obstruction, constipation, inflammatory bowel, hepatitis, peptic ulcer disease, splenic infarction, perforated viscus, testicular torsion, this is not meant to be an all-inclusive list EKG interpreted by me (3pts min.). @ -As above X-rays interpreted by me (1pt min.). @ -None done CT interpreted by me (1pt min.). @ -None done U/S interpreted by me (1pt. min.). @ -None done What testing was considered but not performed or refused? (CT, X-rays, U/S, labs)? Why? @ -Discussion with patient regarding CT scan of the abdomen and pelvis however patient refuses. Patient states he has had similar symptoms dozens of times previously associated with urinary tract infection. What meds were considered but not given or refused? Why? @ -None Did you discuss the management of the patient with other professionals (professionals i.e. DrSarah, PA, CUTTER INSPECTOR, lab, RT, psych nurse, outreach and education social worker, plastics fabricator or welder, teacher, correctional probation officer, shoe parts caser)? Give summary @ -No Was smoking cessation discussed for >3mins.? @ -No Was critical care preformed (if so, how long)? @ -No Were there social determinants of health that impacted care today? How? (Homelessness, low income, unemployed, alcoholism, drug addiction, transportation, low edu. Level, literacy, decrease access to med. care, intermediate, rehab)? @ -No Was there de-escalation of care discussed even if they declined (Discuss DNR or withdrawal of care, Hospice)? DNR status @ -No What co-morbidities impacted this encounter? (DM, HTN, Smoking, COPD, CAD, Cancer, CVA, ARF, Chemo, Hep., AIDS, mental health diagnosis, sleep apnea, morbid obesity)? @ -Frequent urinary tract infections, urostomy Was patient admitted / discharged? Hospital course, mention meds given and route, prescriptions, significant lab abnormalities, going to OR and other pertinent info. @ -Patient presents with concerns for urinary tract infection. On evaluation urinalysis does have some mild changes. Patient is updated regarding this. Patient is convinced his symptoms are related to urinary tract infection. Patient again confronted regarding CT scan however still refuses. Patient would like to be discharged with antibiotics. Patient is agreeable to close follow-up with his primary care physician and urologist. Undiagnosed new problem with uncertain prognosis? @ -No Drug Therapy requiring intensive monitoring for toxicity (Heparin, Nitro, Insulin, Cardizem)? @ -No Were any procedures done? @ -No Diagnosis/symptom? @ -Urinary tract infection Acute, or Chronic, or Acute on Chronic? @ -Acute Uncomplicated (without systemic symptoms) or Complicated (systemic symptoms)? @ -Default Side effects of treatment? @ -No Exacerbation, Progression, or Severe Exacerbation? @ -No Poses a threat to life or bodily function? How? (Chest pain, [place], [place], pneumonia, PE, COPD, DKA, ARF, appy, cholecystitis, CVA, Diverticulitis, Homicidal, Suicidal, threat to staff... and all critical care pts) @ -No - Lab Data Result diagrams: 12/22/24 16:15 12/22/24 16:15 Lab Results 12/22/24 12/22/24 12/22/24 Range/Units 16:15 16:15 16:15 WBC 9.72 (4.50-10.00) 10*3/uL RBC 5.30 (4.40-5.60) 10*6/uL Hgb 13.2 (13.0-17.0) g/dL Hct 42.0 (39.6-50.0) % MCV 79.2 L (80.0-97.0) fL MCH 24.9 L (27.0-32.0) pg MCHC 31.4 L (32.0-37.0) g/dL Plt Count 283 (140-440) 10*3/uL MPV 9.3 L (9.5-12.2) fL Immature Gran % (Auto) 0.4 % Neutrophils % 76.8 % Lymphocytes % 14.7 % Monocytes % 6.5 % Eosinophils % 1.0 % Basophils % 0.6 % Immature Gran # 0.04 (0.00-0.04) 10*3/uL Neutrophils # 7.46 (1.80-7.70) 10*3/uL Lymphocytes # 1.43 (0.90-5.00) 10*3/uL Monocytes # 0.63 (0.20-1.00) 10*3/uL Eosinophils # 0.10 (0.04-0.35) 10*3/uL Basophils # 0.06 (0.00-0.10) 10*3/uL Sodium 140 (137-145) mmol/L Potassium 4.2 (3.5-5.1) mmol/L Chloride 107 (98-107) mmol/L Carbon Dioxide 22 (22-30) mmol/L Anion Gap 11 mmol/L BUN 18 (9-20) mg/dL Creatinine 0.61 L (0.66-1.25) mg/dL Est GFR (CKD-EPI)AfAm >90 (>60 ml/min/1.73 sqM) Est GFR (CKD-EPI)NonAf >90 (>60 ml/min/1.73 sqM) Glucose 91 (74-99) mg/dL Plasma Lactic Acid Reuben (0.7-2.0) mmol/L Calcium 9.0 (8.4-10.2) mg/dL Total Bilirubin 0.4 (0.2-1.3) mg/dL AST 19 (17-59) U/L ALT 13 (4-49) U/L Alkaline Phosphatase 123 (38-126) U/L Total Protein 7.4 (6.3-8.2) g/dL Albumin 3.7 (3.5-5.0) g/dL Urine Color Light Yellow Urine Appearance Clear (Clear) Urine pH 6.0 (5.0-8.0) Ur Specific [place] 1.016 (1.001-1.035) Urine Protein Negative (Negative) Urine Glucose (UA) Negative (Negative) Urine Ketones Negative (Negative) Urine Blood Moderate H (Negative) Urine Nitrite Negative (Negative) Urine Bilirubin Negative (Negative) Urine Urobilinogen <2.0 (<2.0) mg/dL Ur Leukocyte Esterase Large H (Negative) Urine RBC 75 H (0-5) /hpf Urine WBC 17 H (0-5) /hpf Urine Mucus Rare H (None) /hpf 12/22/24 Range/Units 16:15 WBC (4.50-10.00) 10*3/uL RBC (4.40-5.60) 10*6/uL Hgb (13.0-17.0) g/dL Hct (39.6-50.0) % MCV (80.0-97.0) fL MCH (27.0-32.0) pg MCHC (32.0-37.0) g/dL Plt Count (140-440) 10*3/uL MPV (9.5-12.2) fL Immature Gran % (Auto) % Neutrophils % % Lymphocytes % % Monocytes % % Eosinophils % % Basophils % % Immature Gran # (0.00-0.04) 10*3/uL Neutrophils # (1.80-7.70) 10*3/uL Lymphocytes # (0.90-5.00) 10*3/uL Monocytes # (0.20-1.00) 10*3/uL Eosinophils # (0.04-0.35) 10*3/uL Basophils # (0.00-0.10) 10*3/uL Sodium (137-145) mmol/L Potassium (3.5-5.1) mmol/L Chloride (98-107) mmol/L Carbon Dioxide (22-30) mmol/L Anion Gap mmol/L BUN (9-20) mg/dL Creatinine (0.66-1.25) mg/dL Est GFR (CKD-EPI)AfAm (>60 ml/min/1.73 sqM) Est GFR (CKD-EPI)NonAf (>60 ml/min/1.73 sqM) Glucose (74-99) mg/dL Plasma Lactic Acid Reuben 1.5 (0.7-2.0) mmol/L Calcium (8.4-10.2) mg/dL Total Bilirubin (0.2-1.3) mg/dL AST (17-59) U/L ALT (4-49) U/L Alkaline Phosphatase (38-126) U/L Total Protein (6.3-8.2) g/dL Albumin (3.5-5.0) g/dL Urine Color Urine Appearance (Clear) Urine pH (5.0-8.0) Ur Specific [place] (1.001-1.035) Urine Protein (Negative) Urine Glucose (UA) (Negative) Urine Ketones (Negative) Urine Blood (Negative) Urine Nitrite (Negative) Urine Bilirubin (Negative) Urine Urobilinogen (<2.0) mg/dL Ur Leukocyte Esterase (Negative) Urine RBC (0-5) /hpf Urine WBC (0-5) /hpf Urine Mucus (None) /hpf Disposition Clinical Impression: UTI (urinary tract infection) Disposition: HOME SELF-CARE Condition: Stable Instructions (If sedation given, give patient instructions): Urinary Tract Infection in Men (ED) Additional Instructions: Prescription sent to pharmacy. Please do follow-up with your primary care physician and your urologist in the next few days for recheck. Have them both follow-up with your urine culture from today. Return for abdominal pain, fever, vomiting, change or worsening symptoms or any other concerns. Prescriptions: Sulfamethox-Tmp 800-160Mg [Bactrim DS 800-160 mg] 2 each PO Q12HR #10 tab Is patient prescribed a controlled substance at d/c from ED?: No Referrals: Akash Hodges MD [Primary Care Provider] - 1-2 days Colt Stafford MD [STAFF PHYSICIAN] - 1-2 days Time of Disposition: 20:15
[2024-12-22] MEDS: ACETAMINOPHEN IV (For NPO) 1,000 MG in EMPTY BAG 1 BAG IVPB STA (15:59)
[2024-12-22] MEDS: SODIUM CHLORIDE 0.9% 1,000 ML IV STA (16:12)
[2024-12-22] MEDS: diphenhydrAMINE 50 MG/ML 1 ML VIAL IVP STA (16:26)
[2024-12-22] MEDS: METOCLOPRAMIDE 5 MG/ML 2 ML VIAL IVP STA (16:27)
[2024-12-22 16:28] LABS: Basophils # (A) 0.06 10*3/uL (0.00-0.10); Basophils % (A) 0.6 %; Eosinophils # (A) 0.10 10*3/uL (0.04-0.35); Eosinophils % (A) 1.0 %; HCT 42.0 % (39.6-50.0); HGB 13.2 g/dL (13.0-17.0); Lymphocytes # (A) 1.43 10*3/uL (0.90-5.00); Lymphocytes % (A) 14.7 %; MCH 24.9 pg (27.0-32.0); MCHC 31.4 g/dL (32.0-37.0); MCV 79.2 fL (80.0-97.0); Monocytes # (A) 0.63 10*3/uL (0.20-1.00); Monocytes % (A) 6.5 %; Neutrophils # (A) 7.46 10*3/uL (1.80-7.70); Neutrophils % (A) 76.8 %; Platelet Count 283 10*3/uL (140-440); RBC 5.30 10*6/uL (4.40-5.60); RDW 15.5 % (11.5-14.5); WBC 9.72 10*3/uL (4.50-10.00)
[2024-12-22 16:40] LABS: ALT 13 U/L (4-49); AST 19 U/L (17-59); African American GFR (CKD) >90 (>60 ml/min/1.73 sqM); Albumin 3.7 g/dL (3.5-5.0); Alkaline Phosphatase 123 U/L (38-126); Anion Gap 11 mmol/L; Blood Urea Nitrogen 18 mg/dL (9-20); Calcium 9.0 mg/dL (8.4-10.2); Carbon Dioxide 22 mmol/L (22-30); Chloride 107 mmol/L (98-107); Glucose 91 mg/dL (74-99); Non-African American GFR(CKD) >90 (>60 ml/min/1.73 sqM); Potassium 4.2 mmol/L (3.5-5.1); Sodium 140 mmol/L (137-145); Total Protein 7.4 g/dL (6.3-8.2)
[2024-12-22 18:59] LABS: Bilirubin,Urine Negative (Negative); Blood,Urine Moderate (Negative); Color,Urine Light Yellow; Glucose,Urine (UA) Negative (Negative); Ketones,Urine Negative (Negative); Leukocyte Esterase,Urine Large (Negative); Mucus,Urine Rare /hpf; Nitrite,Urine Negative (Negative); PH, Urine 6.0 (5.0-8.0); Protein,Urine Negative (Negative); RBC,Urine 75 /hpf (0-5); Specific Gravity,Urine 1.016 (1.001-1.035); Urobilinogen,Urine <2.0 mg/dL (<2.0); WBC,Urine 17 /hpf (0-5)
[2024-12-22] MEDS: HYDROmorphone 2 MG TAB PO STA (19:21)
[2024-12-22] MEDS: SULFAMETH-TMP DS STARTER PACK 2 TAB BTL PO STA (20:22)
[2024-12-22 20:30] VITALS: BP 108/60; PULSE 75; RESP 17; TEMP 97.3
== END 2024-12-22 20:30 | disposition home or self-care (01) ==
LOC: EC 14:37
DX: N39.0 Urinary tract infection, site not specified (principal); Z91.040 Latex allergy status; Z91.041 Radiographic dye allergy status; Z88.0 Allergy status to penicillin; Z88.1 Allergy status to other antibiotic agents; Z88.5 Allergy status to narcotic agent; Z88.8 Allergy status to other drugs, medicaments and biological substances
CPT/HCPCS: 36415; 80053; 83605; 85025; 81001; 87040; 87086; 99283; 96365; 96366; 96375 ×2; 96361; J1200; J2765; J0131